=== PATIENT | female | born 1955 | race African-American/Black ===

== ENCOUNTER 2016-10-13 05:04 | Inpatient (IN) | payer MEDICAID ==
[~2016-10-13] VITALS: Ht 172.7 cm; Wt 55.9 kg
[~2016-10-13 05:04] MED LIST: ALBU8HFA IH; CARI350 PO; DARU400T PO; DIPH25 PO; HYDR-3965 PO; QUET100T PO; RITO100C PO; TRUVT PO; VALGDS450 PO
[2016-10-13] MEDS ORDERED: ALBUTEROL SULFATE 5 MG/ML 20 ML NEB SOLN [BULK] NEB ONE ×2 (05:15→13:00)
[2016-10-13] MEDS ORDERED: MethylPREDNISolone SOD SUCC 125 MG/2 ML VIAL IVP ONE (05:15)
[2016-10-13] MEDS ORDERED: IPRATROPIUM BROMIDE 0.5 MG/2.5 ML NEB SOLUTION NEB ONE ×2 (05:15→13:00)
[2016-10-13] MEDS ORDERED: 0.9% SODIUM CHLORIDE 5 ML NEB SOLUTION NEB ONE (05:20)
[2016-10-13] MEDS ORDERED: ACETAMINOPHEN 500 MG TABLET PO ONE (11:15)
[2016-10-13] MEDS ORDERED: ONDANSETRON HCL 4 MG/2 ML VIAL IM ONE (13:00)
[2016-10-13] MEDS ORDERED: MORPHINE SULFATE 4 MG/ML SYRINGE IM ONE (13:00)
[2016-10-13] MEDS ORDERED: MORPHINE SULFATE 4 MG/ML SYRINGE IVP ONE (15:45)
[2016-10-13] MEDS ORDERED: ONDANSETRON HCL 4 MG/2 ML VIAL IVP ONE (15:45)
[2016-10-13 15:52] LABS: HEMATOCRIT 31.4 % (36-46); HEMOGLOBIN 10.4 g/dL (12.0-16.0); MEAN CORPUSCULAR HEMOGLOBIN 32.5 pg (26.0-34.0); MEAN CORPUSCULAR VOLUME 98 fL (80-100); RED BLOOD CELL COUNT(AUTO) 3.19 MIL/uL (4.00-5.20); WHITE BLOOD COUNT (AUTO) 10.2 K/uL (4.5-11.0)
[2016-10-13 15:53] LABS: BASOPHILS # (AUTO) 0.02 K/uL (0.00-0.20); BASOPHILS % (AUTO) 0.2 % (0.0-2.0); EOSINOPHILS % (AUTO) 0 % (1.0-6.0); LYMPHOCYTES # (AUTO) 0.4 K/uL (1.0-4.8); LYMPHOCYTES % (AUTO) 3.7 % (22.0-44.0); MEAN CORPUSCULAR HGB CONC 33.1 G/dL (31.0-37.0); MONOCYTES # (AUTO) 0.1 K/uL (0.1-1.0); MONOCYTES % (AUTO) 0.9 % (2.0-9.0); NEUTROPHILS # (AUTO) 9.7 K/uL (1.8-7.7); NEUTROPHILS % (AUTO) 95.2 % (40.0-70.0); PLATELET COUNT (AUTO) 361 K/uL (150-450)
[2016-10-13 15:56] LABS: CREATININE 1.28 mg/dL (0.60-1.30); POTASSIUM 4.2 mmol/L (3.5-5.1)
[2016-10-13 16:02] LABS: BILIRUBIN,TOTAL 0.3 mg/dL (0.1-1.0); TOTAL PROTEIN, SERUM 6.7 g/dL (6.4-8.2)
[2016-10-13 16:15] VITALS: BP 145/97
[2016-10-13] MEDS ORDERED: ALBUTEROL SULFATE 2.5 MG/0.5 ML NEB SOLUTION NEB PRN (18:15)
[2016-10-13] MEDS ORDERED: DiphenhydrAMINE HCL 25 MG CAPSULE PO PRN (18:15)
[2016-10-13] MEDS ORDERED: IPRATROPIUM BROMIDE 0.5 MG/2.5 ML NEB SOLUTION NEB PRN (18:15)
[2016-10-13] MEDS: CARISOPRODOL 350 MG TABLET PO SCH (18:37)
[2016-10-13] MEDS: HYDROCODONE/ACETAMINOPHEN 5-325 MG TABLET PO PRN (18:41)
[2016-10-13 19:24] VITALS: BP 135/76
[2016-10-13] MEDS: OXYGEN THERAPY IH SCH (19:50)
[2016-10-13] MEDS: IPRATROPIUM BROMIDE 0.5 MG/2.5 ML NEB SOLUTION NEB SCH (20:33)
[2016-10-13] MEDS: ALBUTEROL SULFATE 2.5 MG/0.5 ML NEB SOLUTION NEB SCH (20:33)
[2016-10-13] MEDS: QUEtiapine FUMARATE 25 MG TABLET PO SCH (21:15)
[2016-10-13] MEDS: DiphenhydrAMINE HCL 25 MG CAPSULE PO PRN (21:59)
[2016-10-13 23:18] VITALS: BP 115/56
[2016-10-14] MEDS: HEPARIN SODIUM,PORCINE 5,000 UNITS/ML VIAL SQ SCH ×4 (01:12→23:43)
[2016-10-14] MEDS: MethylPREDNISolone SOD SUCC 40 MG/ML VIAL IVP SCH ×4 (01:12→23:43)
[2016-10-14] MEDS: HYDROCODONE/ACETAMINOPHEN 5-325 MG TABLET PO PRN ×5 (01:19→23:43)
[2016-10-14] MEDS: IPRATROPIUM BROMIDE 0.5 MG/2.5 ML NEB SOLUTION NEB SCH ×4 (02:46→19:43)
[2016-10-14] MEDS: ALBUTEROL SULFATE 2.5 MG/0.5 ML NEB SOLUTION NEB SCH ×4 (02:46→19:43)
[2016-10-14 04:45] VITALS: BP 128/71
[2016-10-14] MEDS: DiphenhydrAMINE HCL 25 MG CAPSULE PO PRN ×3 (05:41→20:08)
[2016-10-14 06:04] LABS: BASOPHILS % (AUTO) 0.1 % (0.0-2.0); EOSINOPHILS % (AUTO) 0 % (1.0-6.0); HEMATOCRIT 31.5 % (36-46); HEMOGLOBIN 10.3 g/dL (12.0-16.0); LYMPHOCYTES # (AUTO) 0.6 K/uL (1.0-4.8); LYMPHOCYTES % (AUTO) 5.4 % (22.0-44.0); MEAN CORPUSCULAR HEMOGLOBIN 32.7 pg (26.0-34.0); MEAN CORPUSCULAR HGB CONC 32.8 G/dL (31.0-37.0); MEAN CORPUSCULAR VOLUME 100 fL (80-100); MONOCYTES # (AUTO) 0.1 K/uL (0.1-1.0); NEUTROPHILS # (AUTO) 10.1 K/uL (1.8-7.7); PLATELET COUNT (AUTO) 339 K/uL (150-450); RED BLOOD CELL COUNT(AUTO) 3.15 MIL/uL (4.00-5.20); RED CELL DISTRIBUTION WIDTH 14.7 % (11.5-14.5); WHITE BLOOD COUNT (AUTO) 10.9 K/uL (4.5-11.0)
[2016-10-14 06:23] LABS: NEUTROPHILS % (AUTO) 93.5 % (40.0-70.0)
[2016-10-14 07:13] LABS: CALCIUM, TOTAL 9.1 mg/dL (8.8-10.5); CREATININE 1.14 mg/dL (0.60-1.30); POTASSIUM 4.8 mmol/L (3.5-5.1)
[2016-10-14 07:37] VITALS: BP 117/85
[2016-10-14] MEDS: QUEtiapine FUMARATE 25 MG TABLET PO SCH ×2 (08:12→20:07)
[2016-10-14] MEDS: CARISOPRODOL 350 MG TABLET PO SCH ×3 (08:13→20:07)
[2016-10-14] MEDS: EMTRICITABINE/TENOFOVIR 200-300 MG TABLET PO SCH (08:13)
[2016-10-14] MEDS: OXYGEN THERAPY IH SCH ×2 (08:14→20:07)
[2016-10-14 11:16] VITALS: BP 103/63
[2016-10-14 16:23] VITALS: BP 118/76
[2016-10-14] MEDS: PROMETHAZINE HCL/CODEINE 6.25-10MG/5ML SYRUP UDCUP PO PRN ×2 (16:24→23:49)
[2016-10-14 19:48] VITALS: BP 119/77
[2016-10-14 23:54] VITALS: BP 120/77
[2016-10-15] MEDS: ALBUTEROL SULFATE 2.5 MG/0.5 ML NEB SOLUTION NEB SCH ×4 (03:07→20:06)
[2016-10-15] MEDS: IPRATROPIUM BROMIDE 0.5 MG/2.5 ML NEB SOLUTION NEB SCH ×4 (03:07→20:06)
[2016-10-15 04:56] VITALS: BP 134/75
[2016-10-15] MEDS: DiphenhydrAMINE HCL 25 MG CAPSULE PO PRN ×3 (06:35→20:41)
[2016-10-15] MEDS: HYDROCODONE/ACETAMINOPHEN 5-325 MG TABLET PO PRN ×3 (06:35→20:42)
[2016-10-15 07:29] VITALS: BP 111/74
[2016-10-15] MEDS: OXYGEN THERAPY IH SCH ×2 (08:08→20:41)
[2016-10-15] MEDS: MethylPREDNISolone SOD SUCC 40 MG/ML VIAL IVP SCH ×3 (08:45→23:56)
[2016-10-15] MEDS: QUEtiapine FUMARATE 25 MG TABLET PO SCH ×2 (08:45→20:41)
[2016-10-15] MEDS: PROMETHAZINE HCL/CODEINE 6.25-10MG/5ML SYRUP UDCUP PO PRN ×3 (08:45→23:56)
[2016-10-15] MEDS: EMTRICITABINE/TENOFOVIR 200-300 MG TABLET PO SCH (08:45)
[2016-10-15] MEDS: CARISOPRODOL 350 MG TABLET PO SCH ×2 (08:46→20:41)
[2016-10-15] MEDS: HEPARIN SODIUM,PORCINE 5,000 UNITS/ML VIAL SQ SCH ×3 (08:46→23:56)
[2016-10-15 11:07] VITALS: BP 111/61
[2016-10-15] MEDS: MAGNESIUM HYDROXIDE SUSPENSION 30 ML UDCUP PO PRN (15:17)
[2016-10-15 15:21] VITALS: BP 135/77
[2016-10-15 20:01] VITALS: BP 145/113
[2016-10-16] VITALS (7 sets, daily range): BP systolic 131–153; BP diastolic 73–94
[2016-10-16] MEDS: ALBUTEROL SULFATE 2.5 MG/0.5 ML NEB SOLUTION NEB SCH ×4 (02:00→19:40)
[2016-10-16] MEDS: IPRATROPIUM BROMIDE 0.5 MG/2.5 ML NEB SOLUTION NEB SCH ×4 (02:00→19:40)
[2016-10-16] MEDS: DiphenhydrAMINE HCL 25 MG CAPSULE PO PRN ×3 (04:49→20:01)
[2016-10-16] MEDS: HYDROCODONE/ACETAMINOPHEN 5-325 MG TABLET PO PRN ×2 (04:50→12:01)
[2016-10-16] MEDS: EMTRICITABINE/TENOFOVIR 200-300 MG TABLET PO SCH (08:17)
[2016-10-16] MEDS: QUEtiapine FUMARATE 25 MG TABLET PO SCH ×2 (08:18→20:01)
[2016-10-16] MEDS: MethylPREDNISolone SOD SUCC 40 MG/ML VIAL IVP SCH (08:21)
[2016-10-16] MEDS: HEPARIN SODIUM,PORCINE 5,000 UNITS/ML VIAL SQ SCH ×3 (08:21→23:44)
[2016-10-16] MEDS: OXYGEN THERAPY IH SCH ×2 (08:22→19:43)
[2016-10-16] MEDS: PROMETHAZINE HCL/CODEINE 6.25-10MG/5ML SYRUP UDCUP PO PRN ×3 (08:22→23:44)
[2016-10-16] MEDS: CARISOPRODOL 350 MG TABLET PO SCH ×2 (08:23→20:01)
[2016-10-16] MEDS: OxyCODONE HCL/ACETAMINOPHEN 5-325 MG TABLET PO PRN ×2 (18:01→23:44)
[2016-10-16] MEDS: PredniSONE 20 MG TABLET PO SCH (20:01)
[2016-10-17] MEDS: IPRATROPIUM BROMIDE 0.5 MG/2.5 ML NEB SOLUTION NEB SCH ×4 (02:26→19:59)
[2016-10-17] MEDS: ALBUTEROL SULFATE 2.5 MG/0.5 ML NEB SOLUTION NEB SCH ×4 (02:26→19:59)
[2016-10-17 04:50] VITALS: BP 128/84
[2016-10-17] MEDS: PROMETHAZINE HCL/CODEINE 6.25-10MG/5ML SYRUP UDCUP PO PRN ×3 (05:25→19:10)
[2016-10-17] MEDS: OxyCODONE HCL/ACETAMINOPHEN 5-325 MG TABLET PO PRN ×3 (05:25→19:10)
[2016-10-17 07:36] VITALS: BP 148/88
[2016-10-17] MEDS: QUEtiapine FUMARATE 25 MG TABLET PO SCH ×2 (08:20→20:43)
[2016-10-17] MEDS: DiphenhydrAMINE HCL 25 MG CAPSULE PO PRN ×2 (08:20→20:45)
[2016-10-17] MEDS: EMTRICITABINE/TENOFOVIR 200-300 MG TABLET PO SCH (08:20)
[2016-10-17] MEDS: PredniSONE 20 MG TABLET PO SCH ×2 (08:20→20:42)
[2016-10-17] MEDS: CARISOPRODOL 350 MG TABLET PO SCH ×2 (08:20→20:43)
[2016-10-17] MEDS: OXYGEN THERAPY IH SCH ×2 (08:21→19:59)
[2016-10-17] MEDS: HEPARIN SODIUM,PORCINE 5,000 UNITS/ML VIAL SQ SCH ×2 (08:21→16:56)
[2016-10-17 11:29] VITALS: BP 134/70
[2016-10-17 15:28] VITALS: BP 141/84
[2016-10-17 18:01] VITALS: BP 138/79
[2016-10-17 20:51] VITALS: BP 154/98
[2016-10-18] VITALS (7 sets, daily range): BP systolic 108–150; BP diastolic 59–87
[2016-10-18] MEDS: OxyCODONE HCL/ACETAMINOPHEN 5-325 MG TABLET PO PRN ×4 (00:20→20:25)
[2016-10-18] MEDS: HEPARIN SODIUM,PORCINE 5,000 UNITS/ML VIAL SQ SCH ×4 (00:20→23:23)
[2016-10-18] MEDS: ALBUTEROL SULFATE 2.5 MG/0.5 ML NEB SOLUTION NEB SCH ×4 (02:34→19:42)
[2016-10-18] MEDS: IPRATROPIUM BROMIDE 0.5 MG/2.5 ML NEB SOLUTION NEB SCH ×4 (02:34→19:41)
[2016-10-18] MEDS: MethylPREDNISolone SOD SUCC 125 MG/2 ML VIAL IVP SCH ×4 (02:44→23:23)
[2016-10-18] MEDS: PROMETHAZINE HCL/CODEINE 6.25-10MG/5ML SYRUP UDCUP PO PRN ×2 (02:44→19:54)
[2016-10-18] MEDS: EMTRICITABINE/TENOFOVIR 200-300 MG TABLET PO SCH (08:43)
[2016-10-18] MEDS: QUEtiapine FUMARATE 25 MG TABLET PO SCH ×2 (08:44→19:51)
[2016-10-18] MEDS: CARISOPRODOL 350 MG TABLET PO SCH ×2 (08:44→19:51)
[2016-10-18] MEDS: OXYGEN THERAPY IH SCH (08:46)
[2016-10-18] MEDS: DiphenhydrAMINE HCL 25 MG CAPSULE PO PRN ×2 (13:55→19:54)
[2016-10-19] MEDS: IPRATROPIUM BROMIDE 0.5 MG/2.5 ML NEB SOLUTION NEB SCH ×4 (01:28→20:16)
[2016-10-19] MEDS: ALBUTEROL SULFATE 2.5 MG/0.5 ML NEB SOLUTION NEB SCH ×4 (01:28→20:16)
[2016-10-19] MEDS: OxyCODONE HCL/ACETAMINOPHEN 5-325 MG TABLET PO PRN ×3 (02:01→23:06)
[2016-10-19] MEDS: DiphenhydrAMINE HCL 25 MG CAPSULE PO PRN ×4 (02:06→23:06)
[2016-10-19] MEDS: PROMETHAZINE HCL/CODEINE 6.25-10MG/5ML SYRUP UDCUP PO PRN ×3 (02:06→23:04)
[2016-10-19] MEDS ORDERED: IOVERSOL 350 MG/ML 100 ML VIAL ONE (03:15)
[2016-10-19] MEDS ORDERED: SODIUM CHLORIDE 0.9% 100 ML ONE (03:15)
[2016-10-19 04:25] VITALS: BP 153/87
[2016-10-19 07:13] VITALS: BP 128/88
[2016-10-19] MEDS: OXYGEN THERAPY IH SCH ×3 (08:00→19:54)
[2016-10-19] MEDS: EMTRICITABINE/TENOFOVIR 200-300 MG TABLET PO SCH (08:44)
[2016-10-19] MEDS: CARISOPRODOL 350 MG TABLET PO SCH ×2 (08:45→19:55)
[2016-10-19] MEDS: MethylPREDNISolone SOD SUCC 125 MG/2 ML VIAL IVP SCH ×2 (08:45→16:08)
[2016-10-19] MEDS: HEPARIN SODIUM,PORCINE 5,000 UNITS/ML VIAL SQ SCH ×3 (08:45→23:07)
[2016-10-19] MEDS: QUEtiapine FUMARATE 25 MG TABLET PO SCH ×2 (08:45→19:54)
[2016-10-19 11:20] VITALS: BP 139/81
[2016-10-19 15:20] VITALS: BP 124/80
[2016-10-19 19:21] VITALS: BP 134/70
[2016-10-19] MEDS: PredniSONE 20 MG TABLET PO SCH (19:55)
[2016-10-20 00:31] VITALS: BP 130/72
[2016-10-20] MEDS: ALBUTEROL SULFATE 2.5 MG/0.5 ML NEB SOLUTION NEB SCH ×4 (01:57→19:46)
[2016-10-20] MEDS: IPRATROPIUM BROMIDE 0.5 MG/2.5 ML NEB SOLUTION NEB SCH ×4 (01:57→19:46)
[2016-10-20 04:47] VITALS: BP 137/73
[2016-10-20] MEDS: OxyCODONE HCL/ACETAMINOPHEN 5-325 MG TABLET PO PRN ×3 (05:01→21:10)
[2016-10-20] MEDS: DiphenhydrAMINE HCL 25 MG CAPSULE PO PRN ×3 (05:02→21:10)
[2016-10-20] MEDS: MAGNESIUM HYDROXIDE SUSPENSION 30 ML UDCUP PO PRN (06:45)
[2016-10-20] MEDS: OXYGEN THERAPY IH SCH (07:38)
[2016-10-20 08:18] VITALS: BP 149/82
[2016-10-20] MEDS: PredniSONE 20 MG TABLET PO SCH ×2 (08:39→19:57)
[2016-10-20] MEDS: QUEtiapine FUMARATE 25 MG TABLET PO SCH ×2 (08:39→19:57)
[2016-10-20] MEDS: EMTRICITABINE/TENOFOVIR 200-300 MG TABLET PO SCH (08:39)
[2016-10-20] MEDS: HEPARIN SODIUM,PORCINE 5,000 UNITS/ML VIAL SQ SCH ×3 (08:39→23:23)
[2016-10-20] MEDS: CARISOPRODOL 350 MG TABLET PO SCH ×2 (08:39→19:57)
[2016-10-20 11:34] VITALS: BP 113/65
[2016-10-20] MEDS: PROMETHAZINE HCL/CODEINE 6.25-10MG/5ML SYRUP UDCUP PO PRN ×2 (15:02→21:10)
[2016-10-20 19:20] VITALS: BP 133/78
[2016-10-20 23:04] VITALS: BP 125/68
[2016-10-21] VITALS (7 sets, daily range): BP systolic 112–154; BP diastolic 60–93
[2016-10-21] MEDS: OxyCODONE HCL/ACETAMINOPHEN 5-325 MG TABLET PO PRN ×4 (02:25→22:52)
[2016-10-21] MEDS: DiphenhydrAMINE HCL 25 MG CAPSULE PO PRN ×2 (02:26→22:51)
[2016-10-21] MEDS: PROMETHAZINE HCL/CODEINE 6.25-10MG/5ML SYRUP UDCUP PO PRN ×3 (02:26→19:35)
[2016-10-21] MEDS: ALBUTEROL SULFATE 2.5 MG/0.5 ML NEB SOLUTION NEB SCH ×4 (02:38→20:13)
[2016-10-21] MEDS: IPRATROPIUM BROMIDE 0.5 MG/2.5 ML NEB SOLUTION NEB SCH ×4 (02:38→20:12)
[2016-10-21] MEDS: OXYGEN THERAPY IH SCH ×3 (08:00→20:25)
[2016-10-21] MEDS: CARISOPRODOL 350 MG TABLET PO SCH ×2 (08:13→19:31)
[2016-10-21] MEDS: EMTRICITABINE/TENOFOVIR 200-300 MG TABLET PO SCH (08:13)
[2016-10-21] MEDS: PredniSONE 20 MG TABLET PO SCH ×2 (08:13→19:32)
[2016-10-21] MEDS: QUEtiapine FUMARATE 25 MG TABLET PO SCH ×2 (08:14→19:31)
[2016-10-21] MEDS: HEPARIN SODIUM,PORCINE 5,000 UNITS/ML VIAL SQ SCH ×2 (08:15→14:54)
[2016-10-21] MEDS ORDERED: PRED20 PO (17:38)
[2016-10-22] MEDS: HEPARIN SODIUM,PORCINE 5,000 UNITS/ML VIAL SQ SCH ×2 (00:40→08:10)
[2016-10-22] MEDS: ALBUTEROL SULFATE 2.5 MG/0.5 ML NEB SOLUTION NEB SCH ×2 (02:30→09:30)
[2016-10-22] MEDS: IPRATROPIUM BROMIDE 0.5 MG/2.5 ML NEB SOLUTION NEB SCH ×2 (02:30→09:30)
[2016-10-22] MEDS: DiphenhydrAMINE HCL 25 MG CAPSULE PO PRN (04:35)
[2016-10-22] MEDS: OxyCODONE HCL/ACETAMINOPHEN 5-325 MG TABLET PO PRN ×2 (04:36→08:10)
[2016-10-22 05:37] VITALS: BP 121/79
[2016-10-22 07:10] VITALS: BP 126/74
[2016-10-22] MEDS: EMTRICITABINE/TENOFOVIR 200-300 MG TABLET PO SCH (08:10)
[2016-10-22] MEDS: QUEtiapine FUMARATE 25 MG TABLET PO SCH (08:11)
[2016-10-22] MEDS: PredniSONE 20 MG TABLET PO SCH (08:11)
[2016-10-22] MEDS: CARISOPRODOL 350 MG TABLET PO SCH (08:12)
[2016-10-22] MEDS: PROMETHAZINE HCL/CODEINE 6.25-10MG/5ML SYRUP UDCUP PO PRN (08:13)
[2016-10-22 11:11] VITALS: BP 140/89
== END 2016-10-22 13:07 | disposition home or self-care (01) | DRG 140 ==
LOC: EMS 05:06 → 5S 12:59 → 6N 10-17 18:05
PROVIDERS: ADMIT Family Medicine; ATTEND Family Medicine
PROC: 5A09357 Assistance with Respiratory Ventilation, Less than 24 Consecutive Hours, Continuous Positive Airway Pressure (ICD-10-PCS; principal; 2016-10-13)
DX: J44.1 Chronic obstructive pulmonary disease with (acute) exacerbation (principal); J96.21 Acute and chronic respiratory failure with hypoxia; E44.1 Mild protein-calorie malnutrition; I12.9 Hypertensive chronic kidney disease with stage 1 through stage 4 chronic kidney disease, or unspecified chronic kidney disease; M19.90 Unspecified osteoarthritis, unspecified site; F25.9 Schizoaffective disorder, unspecified; G89.4 Chronic pain syndrome; N18.9 Chronic kidney disease, unspecified; K21.9 Gastro-esophageal reflux disease without esophagitis; E78.00 Pure hypercholesterolemia, unspecified; J42 Unspecified chronic bronchitis; B19.20 Unspecified viral hepatitis C without hepatic coma; F17.210 Nicotine dependence, cigarettes, uncomplicated; Z20.6 Contact with and (suspected) exposure to human immunodeficiency virus [HIV]; Z98.890 Other specified postprocedural states; Z79.899 Other long term (current) drug therapy; Z79.891 Long term (current) use of opiate analgesic; Z87.891 Personal history of nicotine dependence; Z21 Asymptomatic human immunodeficiency virus [HIV] infection status
CPT/HCPCS: 71260; 87081; 93005; 94060; 94640; 94644; 94660; 96372; 96374; 96375; 97161; 99285; J1644; J2270; J2405; J2920; J2930; J7050

== ENCOUNTER 2016-12-02 14:12 | Inpatient (IN) | payer MEDICAID, OTHER ==
[~2016-12-02] VITALS: Ht 172.7 cm; Wt 69.3 kg
[~2016-12-02 14:12] MED LIST changes: -DARU400T PO; +PRED20 PO; -RITO100C PO
[2016-12-02] MEDS ORDERED: MethylPREDNISolone SOD SUCC 125 MG/2 ML VIAL ONE (14:18)
[2016-12-02] MEDS ORDERED: IPRATROPIUM BROMIDE 0.5 MG/2.5 ML NEB SOLUTION NEB ONE ×3 (14:20→15:30)
[2016-12-02 14:30] LABS: ABG BASE EXCESS -0.9 mmol/L (-2.0-3.0); ABG HCO3 23.8 mmol/L (22.0-26.0); ABG PCO2 42 mmHg (35-45); ABG PH 7.379 (7.35-7.450); TEMPERATURE, FAHRENHEIT, BG 98.6 FAHREN (96.0-98.6)
[2016-12-02] MEDS ORDERED: MethylPREDNISolone SOD SUCC 125 MG/2 ML VIAL IVP ONE (14:30)
[2016-12-02] MEDS ORDERED: ALBUTEROL SULFATE 5 MG/ML 20 ML NEB SOLN [BULK] NEB ONE ×2 (14:30→15:30)
[2016-12-02] MEDS ORDERED: DEXAMETHASONE SOD PHOS 4 MG/ML 5 ML VIAL IM ONE (14:30)
[2016-12-02] MEDS ORDERED: SODIUM CHLORIDE 0.9% 1,000 ML IV ONE (14:30)
[2016-12-02 14:32] LABS: ALLEN TEST, BLOOD GAS Positive; IPAP, BG 16 cm H2O
[2016-12-02 14:50] LABS: BASOPHILS % (AUTO) 0.2 % (0.0-2.0); EOSINOPHILS % (AUTO) 1.9 % (1.0-6.0); HEMOGLOBIN 14.2 g/dL (12.0-16.0); LYMPHOCYTES % (AUTO) 33.9 % (22.0-44.0); MEAN CORPUSCULAR HEMOGLOBIN 31.5 pg (26.0-34.0); MEAN CORPUSCULAR HGB CONC 32.4 G/dL (31.0-37.0); MEAN CORPUSCULAR VOLUME 97 fL (80-100); MONOCYTES # (AUTO) 0.8 K/uL (0.1-1.0); NEUTROPHILS # (AUTO) 6.7 K/uL (1.8-7.7); PLATELET COUNT (AUTO) 169 K/uL (150-450); RED BLOOD CELL COUNT(AUTO) 4.52 MIL/uL (4.00-5.20); RED CELL DISTRIBUTION WIDTH 15.2 % (11.5-14.5); WHITE BLOOD COUNT (AUTO) 11.8 K/uL (4.5-11.0)
[2016-12-02 15:09] LABS: B-TYPE NATRIURETIC PEPTIDE 12 pg/mL (0-100)
[2016-12-02 15:14] LABS: ANION GAP 9 mmol/L (8-16); CALCIUM, TOTAL 9.2 mg/dL (8.8-10.5); CARBON DIOXIDE 30 mmol/L (22-29); CHLORIDE 107 mmol/L (98-107); CREATININE 1.07 mg/dL (0.60-1.30); GLOMERULAR FILTR. RATE CALC > 60 mL/min (>60); POTASSIUM 4.4 mmol/L (3.5-5.1); SODIUM SERUM 146 mmol/L (136-145); UREA NITROGEN, BLOOD 13 mg/dL (7-18)
[2016-12-02 15:39] LABS: ALANINE AMINOTRANSFERASE 19 U/L (12-78); ASPARTATE AMINOTRANSFERASE 21 U/L (15-37); BILIRUBIN,TOTAL 0.3 mg/dL (0.1-1.0); CREATINE KINASE MB 2.9 ng/mL (0-5); CREATINE KINASE, TOTAL 193 U/L (26-192); TOTAL PROTEIN, SERUM 8.1 g/dL (6.4-8.2)
[2016-12-02] MEDS ORDERED: MORPHINE SULFATE 4 MG/ML SYRINGE IVP ONE ×2 (16:15→17:00)
[2016-12-02] MEDS ORDERED: DiphenhydrAMINE HCL 50 MG/ML VIAL IVP ONE (16:30)
[2016-12-02] MEDS ORDERED: ACETAMINOPHEN 325 MG TABLET PO PRN ×2 (17:00→20:30)
[2016-12-02] MEDS ORDERED: ASPIRIN 81 MG CHEWABLE TABLET PO ONE (17:00)
[2016-12-02] MEDS ORDERED: HYDROCODONE/ACETAMINOPHEN 5-325 MG TABLET PO PRN (17:00)
[2016-12-02] MEDS ORDERED: MORPHINE SULFATE 4 MG/ML SYRINGE IVP PRN (17:00)
[2016-12-02] MEDS ORDERED: ONDANSETRON HCL 4 MG/2 ML VIAL IVP PRN (17:00)
[2016-12-02] MEDS ORDERED: IPRATROPIUM BROMIDE 0.5 MG/2.5 ML NEB SOLUTION NEB SCH (19:00)
[2016-12-02] MEDS ORDERED: ALBUTEROL SULFATE 2.5 MG/0.5 ML NEB SOLUTION NEB SCH (19:00)
[2016-12-02] MEDS ORDERED: 0.9% SODIUM CHLORIDE 5 ML NEB SOLUTION NEB ONE (20:02)
[2016-12-02] MEDS ORDERED: INSULIN ASPART 100 UNITS/ML SQ PRN (20:30)
[2016-12-02] MEDS ORDERED: DEXTROSE 50%-WATER 25 GM/50 ML SYRINGE IVP PRN (20:30)
[2016-12-02] MEDS ORDERED: MAGNESIUM HYDROXIDE SUSPENSION 30 ML UDCUP PO PRN (20:30)
[2016-12-02 21:04] VITALS: BP 134/77
[2016-12-02] MEDS: DOCUSATE SODIUM 100 MG CAPSULE PO SCH (21:23)
[2016-12-02] MEDS: PANTOPRAZOLE SODIUM 40 MG DR TABLET PO SCH (21:23)
[2016-12-02] MEDS: MORPHINE SULFATE 2 MG/ML SYRINGE IVP PRN (21:24)
[2016-12-02] MEDS: SIMVASTATIN 20 MG TABLET PO SCH (22:00)
[2016-12-02] MEDS: IPRATROPIUM BROMIDE 0.5 MG/2.5 ML NEB SOLUTION NEB SCH (23:25)
[2016-12-02] MEDS: ALBUTEROL SULFATE 2.5 MG/0.5 ML NEB SOLUTION NEB SCH (23:26)
[2016-12-02] MEDS: HEPARIN SODIUM,PORCINE 5,000 UNITS/ML VIAL SQ SCH (23:55)
[2016-12-02] MEDS: DiphenhydrAMINE HCL 25 MG CAPSULE PO PRN (23:55)
[2016-12-02] MEDS: MethylPREDNISolone SOD SUCC 125 MG/2 ML VIAL IVP SCH (23:55)
[2016-12-03] VITALS (7 sets, daily range): BP systolic 127–148; BP diastolic 78–93
[2016-12-03] MEDS: ALBUTEROL SULFATE 2.5 MG/0.5 ML NEB SOLUTION NEB SCH ×6 (03:15→23:23)
[2016-12-03] MEDS: IPRATROPIUM BROMIDE 0.5 MG/2.5 ML NEB SOLUTION NEB SCH ×6 (03:15→23:23)
[2016-12-03] MEDS: MORPHINE SULFATE 2 MG/ML SYRINGE IVP PRN ×3 (03:58→17:03)
[2016-12-03] MEDS: MethylPREDNISolone SOD SUCC 125 MG/2 ML VIAL IVP SCH ×2 (05:35→12:40)
[2016-12-03 07:09] LABS: BASOPHILS % (AUTO) 0.1 % (0.0-2.0); EOSINOPHILS % (AUTO) 0 % (1.0-6.0); HEMATOCRIT 36.8 % (36-46); HEMOGLOBIN 11.9 g/dL (12.0-16.0); LYMPHOCYTES # (AUTO) 0.9 K/uL (1.0-4.8); LYMPHOCYTES % (AUTO) 6.6 % (22.0-44.0); MEAN CORPUSCULAR HEMOGLOBIN 31.3 pg (26.0-34.0); MEAN CORPUSCULAR HGB CONC 32.2 G/dL (31.0-37.0); MEAN CORPUSCULAR VOLUME 97 fL (80-100); MONOCYTES # (AUTO) 0.2 K/uL (0.1-1.0); MONOCYTES % (AUTO) 1.8 % (2.0-9.0); NEUTROPHILS # (AUTO) 12.1 K/uL (1.8-7.7); PLATELET COUNT (AUTO) 149 K/uL (150-450); RED BLOOD CELL COUNT(AUTO) 3.79 MIL/uL (4.00-5.20); RED CELL DISTRIBUTION WIDTH 15.2 % (11.5-14.5); WHITE BLOOD COUNT (AUTO) 13.2 K/uL (4.5-11.0)
[2016-12-03 07:15] LABS: NEUTROPHILS % (AUTO) 91.5 % (40.0-70.0); RBC MORPHOLOGY COMMENT NORMAL RBC MORPH
[2016-12-03 07:42] LABS: ANION GAP 13 mmol/L (8-16); CALCIUM, TOTAL 8.9 mg/dL (8.8-10.5); CARBON DIOXIDE 24 mmol/L (22-29); CHLORIDE 104 mmol/L (98-107); CREATININE 1.03 mg/dL (0.60-1.30); GLOMERULAR FILTR. RATE CALC > 60 mL/min (>60); POTASSIUM 4.5 mmol/L (3.5-5.1); SODIUM SERUM 141 mmol/L (136-145); UREA NITROGEN, BLOOD 15 mg/dL (7-18)
[2016-12-03 08:07] LABS: GLUCOSE COMMENT 1 Received Meds; GLUCOSE,POINT OF CARE 179 MG/DL (70-110)
[2016-12-03] MEDS: HEPARIN SODIUM,PORCINE 5,000 UNITS/ML VIAL SQ SCH ×3 (09:50→23:54)
[2016-12-03] MEDS: ASPIRIN 81 MG CHEWABLE TABLET PO SCH (09:50)
[2016-12-03] MEDS: DOCUSATE SODIUM 100 MG CAPSULE PO SCH ×2 (09:50→19:42)
[2016-12-03] MEDS: PANTOPRAZOLE SODIUM 40 MG DR TABLET PO SCH (09:50)
[2016-12-03] MEDS: DiphenhydrAMINE HCL 25 MG CAPSULE PO PRN ×2 (09:50→19:43)
[2016-12-03] MEDS: MULTIVITAMINS WITH MINERALS, THERAPEUTIC TABLET PO SCH (10:26)
[2016-12-03] MEDS: OxyCODONE HCL/ACETAMINOPHEN 5-325 MG TABLET PO PRN ×3 (15:24→23:54)
[2016-12-03] MEDS: SODIUM CHLORIDE 0.9% 1,000 ML IV SCH (17:01)
[2016-12-03] MEDS: AZITHROMYCIN 500 MG/NS 250 ML IV SCH (17:02)
[2016-12-03 18:57] LABS: GLUCOSE,POINT OF CARE 125 MG/DL (70-110)
[2016-12-03] MEDS: SIMVASTATIN 20 MG TABLET PO SCH (19:43)
[2016-12-04] MEDS: MORPHINE SULFATE 2 MG/ML SYRINGE IVP PRN ×4 (02:13→21:01)
[2016-12-04] MEDS: MethylPREDNISolone SOD SUCC 125 MG/2 ML VIAL IVP SCH ×5 (02:17→18:16)
[2016-12-04] MEDS: CefTRIAXone 1 GM/DEXTROSE 50 ML IV SCH (02:26)
[2016-12-04] MEDS: SODIUM CHLORIDE 0.9% 1,000 ML IV SCH ×3 (02:28→21:45)
[2016-12-04] MEDS: IPRATROPIUM BROMIDE 0.5 MG/2.5 ML NEB SOLUTION NEB SCH ×6 (02:41→23:09)
[2016-12-04] MEDS: ALBUTEROL SULFATE 2.5 MG/0.5 ML NEB SOLUTION NEB SCH ×6 (02:41→23:09)
[2016-12-04] MEDS: AZITHROMYCIN 500 MG/NS 250 ML IV SCH (03:07)
[2016-12-04 06:16] VITALS: BP 131/69
[2016-12-04 07:57] VITALS: BP 142/85
[2016-12-04] MEDS: PANTOPRAZOLE SODIUM 40 MG DR TABLET PO SCH (10:25)
[2016-12-04] MEDS: ASPIRIN 81 MG CHEWABLE TABLET PO SCH (10:26)
[2016-12-04] MEDS: MULTIVITAMINS WITH MINERALS, THERAPEUTIC TABLET PO SCH (10:26)
[2016-12-04] MEDS: DOCUSATE SODIUM 100 MG CAPSULE PO SCH ×2 (10:26→21:01)
[2016-12-04] MEDS: HEPARIN SODIUM,PORCINE 5,000 UNITS/ML VIAL SQ SCH ×2 (10:26→16:00)
[2016-12-04 11:20] VITALS: BP 134/81
[2016-12-04 14:20] VITALS: BP 148/70
[2016-12-04 16:02] VITALS: BP 138/78
[2016-12-04] MEDS: CARISOPRODOL 350 MG TABLET PO SCH (18:16)
[2016-12-04 19:37] VITALS: BP 149/85
[2016-12-04] MEDS: SIMVASTATIN 20 MG TABLET PO SCH (21:01)
[2016-12-05 00:07] VITALS: BP 149/80
[2016-12-05] MEDS: MethylPREDNISolone SOD SUCC 125 MG/2 ML VIAL IVP SCH ×2 (00:12→05:44)
[2016-12-05] MEDS ORDERED: PredniSONE 20 MG TABLET PO SCH ×2 (01:45→08:00)
[2016-12-05] MEDS ORDERED: HYDROCODONE/ACETAMINOPHEN 5-325 MG TABLET PO PRN (01:45)
[2016-12-05] MEDS: QUEtiapine FUMARATE 100 MG TABLET PO SCH ×2 (01:45→08:18)
[2016-12-05] MEDS ORDERED: ALBUTEROL SULFATE HFA 90 MCG/PUFF 8 GM INHALER IH PRN (01:45)
[2016-12-05] MEDS ORDERED: DiphenhydrAMINE HCL 50 MG CAPSULE PO PRN (02:00)
[2016-12-05] MEDS: IPRATROPIUM BROMIDE 0.5 MG/2.5 ML NEB SOLUTION NEB SCH ×2 (03:00→07:00)
[2016-12-05] MEDS: ALBUTEROL SULFATE 2.5 MG/0.5 ML NEB SOLUTION NEB SCH ×2 (03:00→07:00)
[2016-12-05] MEDS: CefTRIAXone 1 GM/DEXTROSE 50 ML IV SCH (03:19)
[2016-12-05] MEDS: MORPHINE SULFATE 2 MG/ML SYRINGE IVP PRN ×2 (03:36→09:37)
[2016-12-05 04:45] VITALS: BP 142/86
[2016-12-05] MEDS: SODIUM CHLORIDE 0.9% 1,000 ML IV SCH (07:45)
[2016-12-05] MEDS: HEPARIN SODIUM,PORCINE 5,000 UNITS/ML VIAL SQ SCH ×2 (08:00)
[2016-12-05 08:10] VITALS: BP 144/103
[2016-12-05] MEDS: MULTIVITAMINS WITH MINERALS, THERAPEUTIC TABLET PO SCH (08:18)
[2016-12-05] MEDS: CARISOPRODOL 350 MG TABLET PO SCH (08:18)
[2016-12-05] MEDS: DOCUSATE SODIUM 100 MG CAPSULE PO SCH (08:18)
[2016-12-05] MEDS: ASPIRIN 81 MG CHEWABLE TABLET PO SCH (08:18)
[2016-12-05] MEDS: PANTOPRAZOLE SODIUM 40 MG DR TABLET PO SCH (08:18)
[2016-12-05] MEDS ORDERED: CARISOPRODOL 350 MG TABLET PO SCH (09:00)
[2016-12-05] MEDS ORDERED: EMTRICITABINE/TENOFOVIR 200-300 MG TABLET PO SCH ×2 (09:00)
[2016-12-05] MEDS ORDERED: AZIT250T6 PO (10:22)
[2016-12-05 11:00] VITALS: BP 146/96
[2016-12-06 17:37] LABS: GLUCOSE,POINT OF CARE 149 MG/DL (70-110)
[2016-12-07 05:32] LABS: GLUCOSE COMMENT 1 Received Meds; GLUCOSE,POINT OF CARE 117 MG/DL (70-110)
[2016-12-07 15:02] LABS: GLUCOSE,POINT OF CARE 112 MG/DL (70-110)
== END 2016-12-05 11:05 | disposition home or self-care (01) | DRG 140 ==
LOC: EMS 14:15 → 5S 18:14
PROVIDERS: ADMIT Internal Medicine; ATTEND Internal Medicine
DX: J44.1 Chronic obstructive pulmonary disease with (acute) exacerbation (principal); B20 Human immunodeficiency virus [HIV] disease; E87.0 Hyperosmolality and hypernatremia; R64 Cachexia; J96.11 Chronic respiratory failure with hypoxia; J84.10 Pulmonary fibrosis, unspecified; I10 Essential (primary) hypertension; E78.00 Pure hypercholesterolemia, unspecified; F17.210 Nicotine dependence, cigarettes, uncomplicated; R07.9 Chest pain, unspecified; F20.9 Schizophrenia, unspecified; K21.9 Gastro-esophageal reflux disease without esophagitis; F19.10 Other psychoactive substance abuse, uncomplicated; B19.20 Unspecified viral hepatitis C without hepatic coma; M19.90 Unspecified osteoarthritis, unspecified site; Z79.899 Other long term (current) drug therapy; Z79.1 Long term (current) use of non-steroidal anti-inflammatories (NSAID); Z79.51 Long term (current) use of inhaled steroids; Z98.890 Other specified postprocedural states; Z68.23 Body mass index [BMI] 23.0-23.9, adult; Z91.19 Patient's noncompliance with other medical treatment and regimen
CPT/HCPCS: 80307; 82805; 82962; 93005; 94640; 94644; 94645; 94660; 96361; 96372; 96374; 96375; 99291; J0456; J0696; J1100; J1200; J1644; J2270; J2930; J7030

== ENCOUNTER 2017-01-08 22:44 | Inpatient (IN) | payer OTHER ==
[~2017-01-08] VITALS: Ht 172.7 cm; Wt 54.7 kg
[~2017-01-08 22:44] MED LIST changes: +AZIT250T6 PO
[2017-01-08] MEDS ORDERED: IPRA4AER IH (22:56)
[2017-01-08] MEDS ORDERED: 0.9% SODIUM CHLORIDE 5 ML NEB SOLUTION NEB ONE (22:57)
[2017-01-08] MEDS ORDERED: IPRATROPIUM BROMIDE 0.5 MG/2.5 ML NEB SOLUTION NEB ONE (23:00)
[2017-01-08] MEDS ORDERED: ALBUTEROL SULFATE 5 MG/ML 20 ML NEB SOLN [BULK] NEB ONE (23:00)
[2017-01-08 23:30] LABS: BASOPHILS % (AUTO) 0.3 % (0.0-2.0); EOSINOPHILS % (AUTO) 1.6 % (1.0-6.0); HEMATOCRIT 35.5 % (36-46); HEMOGLOBIN 11.3 g/dL (12.0-16.0); LYMPHOCYTES # (AUTO) 1.7 K/uL (1.0-4.8); MEAN CORPUSCULAR HEMOGLOBIN 30.7 pg (26.0-34.0); MEAN CORPUSCULAR HGB CONC 31.9 G/dL (31.0-37.0); MEAN CORPUSCULAR VOLUME 96 fL (80-100); MONOCYTES # (AUTO) 0.6 K/uL (0.1-1.0); MONOCYTES % (AUTO) 4.6 % (2.0-9.0); NEUTROPHILS # (AUTO) 11.4 K/uL (1.8-7.7); NEUTROPHILS % (AUTO) 81.5 % (40.0-70.0); PLATELET COUNT (AUTO) 211 K/uL (150-450); RED BLOOD CELL COUNT(AUTO) 3.69 MIL/uL (4.00-5.20); RED CELL DISTRIBUTION WIDTH 14.7 % (11.5-14.5)
[2017-01-08] MEDS ORDERED: ONDANSETRON HCL 4 MG/2 ML VIAL IVP PRN (23:30)
[2017-01-08] MEDS ORDERED: 0.9% SODIUM CHLORIDE 10 ML SYRINGE IVP PRN (23:30)
[2017-01-08] MEDS ORDERED: ACETAMINOPHEN 325 MG TABLET PO PRN (23:30)
[2017-01-08 23:49] LABS: LACTIC ACID 1.1 mmol/L (0.4-2.0)
[2017-01-08 23:57] LABS: PROTHROMBIN TIME 10.9 SEC (9.4-11.6)
[2017-01-09] VITALS (7 sets, daily range): BP systolic 112–142; BP diastolic 58–85
[2017-01-09 00:01] LABS: ANION GAP 6 mmol/L (8-16); CARBON DIOXIDE 26 mmol/L (22-29); CHLORIDE 106 mmol/L (98-107); CREATININE 0.83 mg/dL (0.60-1.30); GLOMERULAR FILTR. RATE CALC > 60 mL/min (>60); POTASSIUM 3.9 mmol/L (3.5-5.1); SODIUM SERUM 138 mmol/L (136-145); UREA NITROGEN, BLOOD 10 mg/dL (7-18)
[2017-01-09 00:07] LABS: ALANINE AMINOTRANSFERASE 11 U/L (12-78); ALBUMIN 2.7 g/dL (3.4-5.0); ASPARTATE AMINOTRANSFERASE 15 U/L (15-37); BILIRUBIN,TOTAL 0.4 mg/dL (0.1-1.0); CREATINE KINASE, TOTAL 62 U/L (26-192); TOTAL PROTEIN, SERUM 6.6 g/dL (6.4-8.2)
[2017-01-09] MEDS ORDERED: MAGNESIUM HYDROXIDE SUSPENSION 30 ML UDCUP PO PRN (02:15)
[2017-01-09] MEDS ORDERED: IPRATROPIUM BROMIDE 0.5 MG/2.5 ML NEB SOLUTION NEB PRN (02:15)
[2017-01-09] MEDS ORDERED: 0.9% SODIUM CHLORIDE 10 ML SYRINGE IVP PRN (02:15)
[2017-01-09] MEDS ORDERED: ONDANSETRON HCL 4 MG/2 ML VIAL IVP PRN (02:15)
[2017-01-09] MEDS ORDERED: ACETAMINOPHEN 325 MG TABLET PO PRN (02:15)
[2017-01-09] MEDS ORDERED: OxyCODONE HCL/ACETAMINOPHEN 5-325 MG TABLET PO PRN (02:15)
[2017-01-09] MEDS ORDERED: ALBUTEROL SULFATE 2.5 MG/0.5 ML NEB SOLUTION NEB PRN (02:15)
[2017-01-09] MEDS ORDERED: SODIUM CHLORIDE 0.9% 250 ML IV ONE (02:37)
[2017-01-09] MEDS: MethylPREDNISolone SOD SUCC 125 MG/2 ML VIAL IVP SCH ×4 (02:40→23:30)
[2017-01-09] MEDS: OxyCODONE HCL/ACETAMINOPHEN 5-325 MG TABLET PO PRN ×4 (02:41→20:58)
[2017-01-09] MEDS: CefTRIAXone 1 GM/DEXTROSE 50 ML IV SCH (02:51)
[2017-01-09] MEDS: IPRATROPIUM BROMIDE 0.5 MG/2.5 ML NEB SOLUTION NEB SCH ×3 (07:30→22:24)
[2017-01-09] MEDS: ALBUTEROL SULFATE 2.5 MG/0.5 ML NEB SOLUTION NEB SCH ×3 (07:30→22:24)
[2017-01-09] MEDS: PANTOPRAZOLE SODIUM 40 MG/VIAL IVP SCH (08:04)
[2017-01-09] MEDS: DOCUSATE SODIUM 100 MG CAPSULE PO SCH ×2 (08:05→20:58)
[2017-01-09] MEDS ORDERED: CARISOPRODOL 350 MG TABLET PO SCH (09:00)
[2017-01-09] MEDS ORDERED: QUEtiapine FUMARATE 100 MG TABLET PO SCH (09:00)
[2017-01-09] MEDS: GuaiFENesin/CODEINE [SUGAR FREE] 200-20MG/10 ML SYRUP UDCUP PO PRN ×2 (11:08→20:57)
[2017-01-09] MEDS: HEPARIN SODIUM,PORCINE 5,000 UNITS/ML VIAL SQ SCH (20:58)
[2017-01-09] MEDS: CARISOPRODOL 350 MG TABLET PO SCH (22:48)
[2017-01-09] MEDS: QUEtiapine FUMARATE 25 MG TABLET PO SCH (22:48)
[2017-01-10 00:12] VITALS: BP 131/84
[2017-01-10] MEDS ORDERED: 0.9% SODIUM CHLORIDE 5 ML NEB SOLUTION NEB ONE (01:46)
[2017-01-10] MEDS: ALBUTEROL SULFATE 2.5 MG/0.5 ML NEB SOLUTION NEB SCH ×3 (01:50→14:00)
[2017-01-10] MEDS: IPRATROPIUM BROMIDE 0.5 MG/2.5 ML NEB SOLUTION NEB SCH ×3 (01:50→14:00)
[2017-01-10] MEDS ORDERED: SODIUM CHLORIDE 0.9% 250 ML IV ONE (03:27)
[2017-01-10] MEDS: CefTRIAXone 1 GM/DEXTROSE 50 ML IV SCH (03:34)
[2017-01-10 05:10] VITALS: BP 106/61
[2017-01-10] MEDS: OxyCODONE HCL/ACETAMINOPHEN 5-325 MG TABLET PO PRN ×2 (05:27→09:49)
[2017-01-10 06:48] LABS: HEMATOCRIT 33.8 % (36-46); HEMOGLOBIN 11.1 g/dL (12.0-16.0); MEAN CORPUSCULAR HEMOGLOBIN 32.1 pg (26.0-34.0); MEAN CORPUSCULAR HGB CONC 32.9 G/dL (31.0-37.0); MEAN CORPUSCULAR VOLUME 98 fL (80-100); PLATELET COUNT (AUTO) 236 K/uL (150-450); RED BLOOD CELL COUNT(AUTO) 3.46 MIL/uL (4.00-5.20); WHITE BLOOD COUNT (AUTO) 10.2 K/uL (4.5-11.0)
[2017-01-10 06:55] LABS: ANION GAP 9 mmol/L (8-16); CALCIUM, TOTAL 8.7 mg/dL (8.8-10.5); CARBON DIOXIDE 27 mmol/L (22-29); CHLORIDE 103 mmol/L (98-107); CREATININE 0.98 mg/dL (0.60-1.30); GLOMERULAR FILTR. RATE CALC > 60 mL/min (>60); POTASSIUM 3.6 mmol/L (3.5-5.1); SODIUM SERUM 139 mmol/L (136-145); UREA NITROGEN, BLOOD 15 mg/dL (7-18)
[2017-01-10 07:54] VITALS: BP 113/93
[2017-01-10] MEDS: MethylPREDNISolone SOD SUCC 125 MG/2 ML VIAL IVP SCH (08:15)
[2017-01-10 08:16] LABS: BAND NEUTROPHILS % (MANUAL) 25 % (1-5); LYMPHOCYTES % (MANUAL) 5 % (22-44); TOTAL CELLS COUNTED 100
[2017-01-10 08:17] LABS: RBC MORPHOLOGY COMMENT NORMAL RBC MORPH
[2017-01-10] MEDS: GuaiFENesin/CODEINE [SUGAR FREE] 200-20MG/10 ML SYRUP UDCUP PO PRN (08:17)
[2017-01-10] MEDS: PANTOPRAZOLE SODIUM 40 MG/VIAL IVP SCH (09:30)
[2017-01-10] MEDS: QUEtiapine FUMARATE 25 MG TABLET PO SCH (09:30)
[2017-01-10] MEDS: DOCUSATE SODIUM 100 MG CAPSULE PO SCH (09:30)
[2017-01-10] MEDS: CARISOPRODOL 350 MG TABLET PO SCH (09:31)
[2017-01-10] MEDS: HEPARIN SODIUM,PORCINE 5,000 UNITS/ML VIAL SQ SCH (09:31)
[2017-01-10 11:36] VITALS: BP 125/73
== END 2017-01-10 15:00 | disposition home or self-care (01) | DRG 720 ==
LOC: EMS 22:46 → 5N 23:30 → 6N 01-09 11:54
PROVIDERS: ADMIT Internal Medicine; ATTEND Internal Medicine
PROC: 5A09357 Assistance with Respiratory Ventilation, Less than 24 Consecutive Hours, Continuous Positive Airway Pressure (ICD-10-PCS; principal; 2017-01-09)
DX: A41.9 Sepsis, unspecified organism (principal); J96.01 Acute respiratory failure with hypoxia; R40.20 Unspecified coma; J18.9 Pneumonia, unspecified organism; E44.0 Moderate protein-calorie malnutrition; J44.0 Chronic obstructive pulmonary disease with (acute) lower respiratory infection; J45.901 Unspecified asthma with (acute) exacerbation; J84.10 Pulmonary fibrosis, unspecified; J44.1 Chronic obstructive pulmonary disease with (acute) exacerbation; E78.00 Pure hypercholesterolemia, unspecified; F17.210 Nicotine dependence, cigarettes, uncomplicated; F25.9 Schizoaffective disorder, unspecified; I10 Essential (primary) hypertension; K21.9 Gastro-esophageal reflux disease without esophagitis; Z20.6 Contact with and (suspected) exposure to human immunodeficiency virus [HIV]; Z68.1 Body mass index [BMI] 19.9 or less, adult; M19.90 Unspecified osteoarthritis, unspecified site; Z79.899 Other long term (current) drug therapy
CPT/HCPCS: 83605; 87081; 93005; 94640; 94644; 94660; 99291; C9113; J0696; J1644; J2405; J2930; J7050

== ENCOUNTER 2017-01-23 06:13 | Inpatient (IN) | payer OTHER ==
[~2017-01-23] VITALS: Ht 152.4 cm; Wt 55.0 kg
[~2017-01-23 06:13] MED LIST changes: -AZIT250T6 PO; -DIPH25 PO; +IPRA4AER IH; -PRED20 PO; -TRUVT PO
[2017-01-23] MEDS ORDERED: 0.9% SODIUM CHLORIDE 15 ML NEB SOLUTION NEB ONE (06:28)
[2017-01-23] MEDS ORDERED: SODIUM CHLORIDE 0.9% 1,000 ML IV ONE (06:30)
[2017-01-23] MEDS ORDERED: EPINEPHrine 1:1,000 [1 MG/ML] AMP IM ONE (06:30)
[2017-01-23] MEDS ORDERED: RANITIDINE HCL 25 MG/ML 2 ML VIAL IVP ONE (06:30)
[2017-01-23] MEDS ORDERED: MethylPREDNISolone SOD SUCC 125 MG/2 ML VIAL IVP ONE (06:30)
[2017-01-23] MEDS ORDERED: DiphenhydrAMINE HCL 50 MG/ML VIAL IM ONE (06:30)
[2017-01-23] MEDS ORDERED: IPRATROPIUM BROMIDE 0.5 MG/2.5 ML NEB SOLUTION NEB ONE (06:30)
[2017-01-23] MEDS ORDERED: ALBUTEROL SULFATE 5 MG/ML 20 ML NEB SOLN [BULK] NEB ONE (06:30)
[2017-01-23] MEDS ORDERED: PredniSONE 20 MG TABLET PO ONE (06:30)
[2017-01-23 06:41] LABS: BASOPHILS % (AUTO) 0.7 % (0.0-2.0); EOSINOPHILS % (AUTO) 1.9 % (1.0-6.0); HEMATOCRIT 42.2 % (36-46); HEMOGLOBIN 13.5 g/dL (12.0-16.0); LYMPHOCYTES # (AUTO) 3.6 K/uL (1.0-4.8); LYMPHOCYTES % (AUTO) 31.5 % (22.0-44.0); MEAN CORPUSCULAR HEMOGLOBIN 31.7 pg (26.0-34.0); MEAN CORPUSCULAR HGB CONC 31.9 G/dL (31.0-37.0); MEAN CORPUSCULAR VOLUME 99 fL (80-100); MONOCYTES # (AUTO) 0.7 K/uL (0.1-1.0); MONOCYTES % (AUTO) 6.2 % (2.0-9.0); NEUTROPHILS # (AUTO) 6.8 K/uL (1.8-7.7); NEUTROPHILS % (AUTO) 59.7 % (40.0-70.0); PLATELET COUNT (AUTO) 285 K/uL (150-450); RED BLOOD CELL COUNT(AUTO) 4.26 MIL/uL (4.00-5.20); RED CELL DISTRIBUTION WIDTH 15.3 % (11.5-14.5); WHITE BLOOD COUNT (AUTO) 11.4 K/uL (4.5-11.0)
[2017-01-23 06:49] LABS: CREATININE 1.25 mg/dL (0.60-1.30); POTASSIUM 4.3 mmol/L (3.5-5.1)
[2017-01-23 06:55] LABS: ALBUMIN 3.1 g/dL (3.4-5.0); BILIRUBIN,TOTAL 0.2 mg/dL (0.1-1.0); TOTAL PROTEIN, SERUM 7.7 g/dL (6.4-8.2)
[2017-01-23 06:58] LABS: LACTIC ACID 1.2 mmol/L (0.4-2.0)
[2017-01-23] MEDS ORDERED: CefTRIAXone 1 GM/DEXTROSE 50 ML IV ONE (09:30)
[2017-01-23] MEDS ORDERED: AZITHROMYCIN 500 MG/NS 250 ML IV ONE (09:30)
[2017-01-23] MEDS ORDERED: ONDANSETRON HCL 4 MG/2 ML VIAL IVP PRN (10:45)
[2017-01-23] MEDS ORDERED: BISACODYL 10 MG RECTAL RECTAL SUPPOSITORY PR PRN (10:45)
[2017-01-23] MEDS ORDERED: MAGNESIUM HYDROXIDE SUSPENSION 30 ML UDCUP PO PRN (10:45)
[2017-01-23] MEDS ORDERED: ACETAMINOPHEN 325 MG TABLET PO PRN (10:45)
[2017-01-23] MEDS: MethylPREDNISolone SOD SUCC 125 MG/2 ML VIAL IVP SCH ×3 (13:48→23:27)
[2017-01-23] MEDS: MORPHINE SULFATE 2 MG/ML SYRINGE IVP PRN ×3 (14:11→22:30)
[2017-01-23] MEDS: ALBUTEROL SULFATE 2.5 MG/0.5 ML NEB SOLUTION NEB SCH ×2 (14:47→19:53)
[2017-01-23] MEDS: IPRATROPIUM BROMIDE 0.5 MG/2.5 ML NEB SOLUTION NEB SCH ×2 (14:47→19:53)
[2017-01-23 14:51] VITALS: BP 116/76
[2017-01-23] MEDS ORDERED: BENZONATATE 100 MG CAPSULE PO SCH (16:00)
[2017-01-23] MEDS: HYDROCODONE/ACETAMINOPHEN 5-325 MG TABLET PO PRN ×2 (16:20→20:46)
[2017-01-23] MEDS: HEPARIN SODIUM,PORCINE 5,000 UNITS/ML VIAL SQ SCH ×2 (16:20→23:27)
[2017-01-23] MEDS: BENZONATATE 100 MG CAPSULE PO SCH ×2 (16:20→20:46)
[2017-01-23] MEDS: CARISOPRODOL 350 MG TABLET PO SCH ×2 (17:07→21:00)
[2017-01-23 19:53] VITALS: BP 124/91
[2017-01-23] MEDS: BUDESONIDE 0.5 MG/2 ML NEB SOLUTION NEB SCH (19:53)
[2017-01-23] MEDS: GuaiFENesin SR 600 MG ER TABLET PO SCH (20:46)
[2017-01-23] MEDS: DOCUSATE SODIUM 100 MG CAPSULE PO SCH (20:47)
[2017-01-23] MEDS ORDERED: FLUTICASONE/VILANTEROL 200-25 MCG/INH INHALER [14] IH SCH (21:00)
[2017-01-23] MEDS: PROMETHAZINE HCL/CODEINE 6.25-10MG/5ML SYRUP UDCUP PO PRN (23:28)
[2017-01-24] VITALS (7 sets, daily range): BP systolic 114–148; BP diastolic 69–93
[2017-01-24] MEDS: ZOLPIDEM TARTRATE 5 MG TABLET PO PRN ×2 (01:46→21:15)
[2017-01-24] MEDS: ALBUTEROL SULFATE 2.5 MG/0.5 ML NEB SOLUTION NEB SCH ×4 (02:00→20:38)
[2017-01-24] MEDS: IPRATROPIUM BROMIDE 0.5 MG/2.5 ML NEB SOLUTION NEB SCH ×4 (02:00→20:38)
[2017-01-24] MEDS: MORPHINE SULFATE 2 MG/ML SYRINGE IVP PRN ×4 (05:31→21:15)
[2017-01-24] MEDS: MethylPREDNISolone SOD SUCC 125 MG/2 ML VIAL IVP SCH ×4 (05:31→23:27)
[2017-01-24 06:43] LABS: BASOPHILS % (AUTO) 0.2 % (0.0-2.0); EOSINOPHILS % (AUTO) 0 % (1.0-6.0); HEMATOCRIT 33.1 % (36-46); HEMOGLOBIN 10.6 g/dL (12.0-16.0); LYMPHOCYTES # (AUTO) 0.6 K/uL (1.0-4.8); MEAN CORPUSCULAR HEMOGLOBIN 31.6 pg (26.0-34.0); MEAN CORPUSCULAR HGB CONC 32.1 G/dL (31.0-37.0); MEAN CORPUSCULAR VOLUME 98 fL (80-100); MONOCYTES # (AUTO) 0.3 K/uL (0.1-1.0); MONOCYTES % (AUTO) 3.4 % (2.0-9.0); NEUTROPHILS # (AUTO) 8.3 K/uL (1.8-7.7); PLATELET COUNT (AUTO) 313 K/uL (150-450); RED BLOOD CELL COUNT(AUTO) 3.37 MIL/uL (4.00-5.20); RED CELL DISTRIBUTION WIDTH 14.9 % (11.5-14.5); WHITE BLOOD COUNT (AUTO) 9.3 K/uL (4.5-11.0)
[2017-01-24 06:57] LABS: NEUTROPHILS % (AUTO) 89.4 % (40.0-70.0)
[2017-01-24 07:03] LABS: ANION GAP 10 mmol/L (8-16); CALCIUM, TOTAL 8.6 mg/dL (8.8-10.5); CARBON DIOXIDE 25 mmol/L (22-29); CHLORIDE 106 mmol/L (98-107); CREATININE 0.96 mg/dL (0.60-1.30); GLOMERULAR FILTR. RATE CALC > 60 mL/min (>60); PHOSPHORUS 2.8 mg/dL (2.5-4.9); POTASSIUM 4.4 mmol/L (3.5-5.1); SODIUM SERUM 141 mmol/L (136-145); THYROID STIMULATING HORMONE 0.09 uIU/mL (0.36-3.74); UREA NITROGEN, BLOOD 12 mg/dL (7-18)
[2017-01-24] MEDS: HYDROCODONE/ACETAMINOPHEN 5-325 MG TABLET PO PRN ×3 (07:39→22:26)
[2017-01-24] MEDS: DOCUSATE SODIUM 100 MG CAPSULE PO SCH ×2 (07:40→21:03)
[2017-01-24] MEDS: GuaiFENesin SR 600 MG ER TABLET PO SCH ×2 (07:40→21:03)
[2017-01-24] MEDS: CARISOPRODOL 350 MG TABLET PO SCH ×2 (07:40→21:03)
[2017-01-24] MEDS: BENZONATATE 100 MG CAPSULE PO SCH ×3 (07:41→21:03)
[2017-01-24] MEDS: PANTOPRAZOLE SODIUM 40 MG DR TABLET PO SCH (07:41)
[2017-01-24] MEDS: HEPARIN SODIUM,PORCINE 5,000 UNITS/ML VIAL SQ SCH ×3 (07:44→23:27)
[2017-01-24] MEDS: BUDESONIDE 0.5 MG/2 ML NEB SOLUTION NEB SCH ×2 (08:25→20:38)
[2017-01-24 08:45] LABS: RBC MORPHOLOGY COMMENT NORMAL RBC MORPH
[2017-01-24 09:43] LABS: ABG A-A DIFF O2 36.2 mmHg (10-20.0); ABG BASE EXCESS -1.9 mmol/L (-2.0-3.0); ABG HCO3 23.2 mmol/L (22.0-26.0); ABG OXYHEMOGLOBIN 93.7 % (94.0-100.0); ABG PCO2 36 mmHg (35-45); ABG PH 7.419 (7.35-7.450)
[2017-01-24] MEDS ORDERED: SODIUM CHLORIDE 0.9% 500 ML IV ONE (09:43)
[2017-01-24 09:53] LABS: ALLEN TEST, BLOOD GAS Positive
[2017-01-24] MEDS: CefTRIAXone 1 GM/DEXTROSE 50 ML IV SCH (10:18)
[2017-01-24] MEDS: AZITHROMYCIN 500 MG/NS 250 ML IV SCH (11:08)
[2017-01-24] MEDS: PROMETHAZINE HCL/CODEINE 6.25-10MG/5ML SYRUP UDCUP PO PRN ×2 (15:15→22:26)
[2017-01-25] MEDS: ALBUTEROL SULFATE 2.5 MG/0.5 ML NEB SOLUTION NEB SCH ×4 (02:00→20:01)
[2017-01-25] MEDS: IPRATROPIUM BROMIDE 0.5 MG/2.5 ML NEB SOLUTION NEB SCH ×4 (02:00→20:01)
[2017-01-25] MEDS: MORPHINE SULFATE 2 MG/ML SYRINGE IVP PRN ×5 (04:07→22:50)
[2017-01-25 04:26] VITALS: BP 132/87
[2017-01-25] MEDS: MethylPREDNISolone SOD SUCC 125 MG/2 ML VIAL IVP SCH ×4 (05:47→22:49)
[2017-01-25] MEDS: HYDROCODONE/ACETAMINOPHEN 5-325 MG TABLET PO PRN ×3 (05:49→17:38)
[2017-01-25] MEDS: PROMETHAZINE HCL/CODEINE 6.25-10MG/5ML SYRUP UDCUP PO PRN ×2 (07:07→17:00)
[2017-01-25] MEDS: BUDESONIDE 0.5 MG/2 ML NEB SOLUTION NEB SCH ×2 (07:23→20:01)
[2017-01-25 07:58] VITALS: BP 153/85
[2017-01-25] MEDS: GuaiFENesin SR 600 MG ER TABLET PO SCH ×2 (08:03→21:11)
[2017-01-25] MEDS: CARISOPRODOL 350 MG TABLET PO SCH ×2 (08:03→21:11)
[2017-01-25] MEDS: BENZONATATE 100 MG CAPSULE PO SCH ×3 (08:03→21:11)
[2017-01-25] MEDS: HEPARIN SODIUM,PORCINE 5,000 UNITS/ML VIAL SQ SCH ×3 (08:03→22:49)
[2017-01-25] MEDS: DOCUSATE SODIUM 100 MG CAPSULE PO SCH ×2 (08:03→21:11)
[2017-01-25] MEDS: PANTOPRAZOLE SODIUM 40 MG DR TABLET PO SCH (08:03)
[2017-01-25] MEDS: ALBUTEROL SULFATE 2.5 MG/0.5 ML NEB SOLUTION NEB PRN (09:46)
[2017-01-25] MEDS: IPRATROPIUM BROMIDE 0.5 MG/2.5 ML NEB SOLUTION NEB PRN (09:47)
[2017-01-25] MEDS: CefTRIAXone 1 GM/DEXTROSE 50 ML IV SCH (10:10)
[2017-01-25] MEDS: AZITHROMYCIN 500 MG/NS 250 ML IV SCH (10:48)
[2017-01-25 12:23] VITALS: BP 139/88
[2017-01-25 15:30] VITALS: BP 157/88
[2017-01-25 20:07] VITALS: BP 133/81
[2017-01-25] MEDS: ZOLPIDEM TARTRATE 5 MG TABLET PO PRN (22:49)
[2017-01-25 23:49] VITALS: BP 143/87
[2017-01-26] MEDS: HYDROCODONE/ACETAMINOPHEN 5-325 MG TABLET PO PRN ×2 (00:44→08:10)
[2017-01-26] MEDS: ALBUTEROL SULFATE 2.5 MG/0.5 ML NEB SOLUTION NEB SCH ×2 (02:00→08:16)
[2017-01-26] MEDS: IPRATROPIUM BROMIDE 0.5 MG/2.5 ML NEB SOLUTION NEB SCH ×2 (02:00→08:16)
[2017-01-26] MEDS: MORPHINE SULFATE 2 MG/ML SYRINGE IVP PRN (02:51)
[2017-01-26 04:37] VITALS: BP 150/82
[2017-01-26] MEDS: IPRATROPIUM BROMIDE 0.5 MG/2.5 ML NEB SOLUTION NEB PRN (05:04)
[2017-01-26] MEDS: ALBUTEROL SULFATE 2.5 MG/0.5 ML NEB SOLUTION NEB PRN (05:04)
[2017-01-26] MEDS: MethylPREDNISolone SOD SUCC 125 MG/2 ML VIAL IVP SCH (06:01)
[2017-01-26 07:50] VITALS: BP 154/108
[2017-01-26] MEDS: PANTOPRAZOLE SODIUM 40 MG DR TABLET PO SCH (08:08)
[2017-01-26] MEDS: CARISOPRODOL 350 MG TABLET PO SCH (08:09)
[2017-01-26] MEDS: GuaiFENesin SR 600 MG ER TABLET PO SCH (08:09)
[2017-01-26] MEDS: BENZONATATE 100 MG CAPSULE PO SCH (08:10)
[2017-01-26] MEDS: HEPARIN SODIUM,PORCINE 5,000 UNITS/ML VIAL SQ SCH (08:10)
[2017-01-26] MEDS: DOCUSATE SODIUM 100 MG CAPSULE PO SCH (08:14)
[2017-01-26] MEDS: BUDESONIDE 0.5 MG/2 ML NEB SOLUTION NEB SCH (08:16)
== END 2017-01-26 09:40 | disposition left against medical advice (07) | DRG 140 ==
LOC: EMS 06:15 → 6N 13:30
PROVIDERS: ADMIT Internal Medicine; ATTEND Internal Medicine
PROC: 5A09357 Assistance with Respiratory Ventilation, Less than 24 Consecutive Hours, Continuous Positive Airway Pressure (ICD-10-PCS; principal; 2017-01-23)
DX: J44.1 Chronic obstructive pulmonary disease with (acute) exacerbation (principal); J96.00 Acute respiratory failure, unspecified whether with hypoxia or hypercapnia; E44.0 Moderate protein-calorie malnutrition; B18.2 Chronic viral hepatitis C; E78.00 Pure hypercholesterolemia, unspecified; E78.5 Hyperlipidemia, unspecified; F20.9 Schizophrenia, unspecified; F17.210 Nicotine dependence, cigarettes, uncomplicated; F99 Mental disorder, not otherwise specified; M19.90 Unspecified osteoarthritis, unspecified site; I10 Essential (primary) hypertension; K21.9 Gastro-esophageal reflux disease without esophagitis; Z82.49 Family history of ischemic heart disease and other diseases of the circulatory system; Z82.5 Family history of asthma and other chronic lower respiratory diseases; Z79.899 Other long term (current) drug therapy; Z68.23 Body mass index [BMI] 23.0-23.9, adult
CPT/HCPCS: 82805; 83605; 83735; 84100; 84443; 87040; 93005; 94640; 94644; 94660; 99291; J0171; J0456; J0696; J1644; J2270; J2780; J2930; J7030; J7040

== ENCOUNTER 2017-02-24 22:39 | Inpatient (IN) | payer OTHER ==
[~2017-02-24] VITALS: Ht 177.8 cm; Wt 51.9 kg
[2017-02-24 23:02] LABS: GLUCOSE,POINT OF CARE 93 MG/DL (70-110)
[2017-02-24] MEDS ORDERED: ALBUTEROL SULFATE 5 MG/ML 20 ML NEB SOLN [BULK] NEB ONE ×3 (23:09→23:15)
[2017-02-24] MEDS ORDERED: IPRATROPIUM BROMIDE 0.5 MG/2.5 ML NEB SOLUTION NEB ONE ×2 (23:10→23:15)
[2017-02-24] MEDS ORDERED: 0.9% SODIUM CHLORIDE 5 ML NEB SOLUTION NEB ONE (23:10)
[2017-02-24] MEDS ORDERED: ALPR1TAB7 PO (23:15)
[2017-02-24] MEDS ORDERED: VENL-67 PO (23:15)
[2017-02-24] MEDS ORDERED: OXYC30TA2 PO (23:15)
[2017-02-24] MEDS ORDERED: ALBU8HFA PO (23:15)
[2017-02-24] MEDS ORDERED: EMTR1TAB13 PO (23:15)
[2017-02-24] MEDS ORDERED: AMLO5TAB66 PO (23:15)
[2017-02-24] MEDS ORDERED: MethylPREDNISolone SOD SUCC 125 MG/2 ML VIAL IVP ONE (23:30)
[2017-02-24 23:44] LABS: BASOPHILS % (AUTO) 1.7 % (0.0-2.0); EOSINOPHILS % (AUTO) 5.4 % (1.0-6.0); HEMATOCRIT 46.1 % (36-46); HEMOGLOBIN 14.5 g/dL (12.0-16.0); LYMPHOCYTES # (AUTO) 2.9 K/uL (1.0-4.8); LYMPHOCYTES % (AUTO) 53.5 % (22.0-44.0); MEAN CORPUSCULAR HEMOGLOBIN 30.4 pg (26.0-34.0); MEAN CORPUSCULAR HGB CONC 31.5 G/dL (31.0-37.0); MEAN CORPUSCULAR VOLUME 96 fL (80-100); MONOCYTES # (AUTO) 0.5 K/uL (0.1-1.0); MONOCYTES % (AUTO) 9.3 % (2.0-9.0); NEUTROPHILS # (AUTO) 1.7 K/uL (1.8-7.7); NEUTROPHILS % (AUTO) 30.1 % (40.0-70.0); PLATELET COUNT (AUTO) 264 K/uL (150-450); RED BLOOD CELL COUNT(AUTO) 4.78 MIL/uL (4.00-5.20); WHITE BLOOD COUNT (AUTO) 5.5 K/uL (4.5-11.0)
[2017-02-24 23:49] LABS: PROTHROMBIN TIME 10.7 SEC (9.4-11.6)
[2017-02-24 23:53] LABS: ANION GAP 9 mmol/L (8-16); CALCIUM, TOTAL 9.3 mg/dL (8.8-10.5); CARBON DIOXIDE 25 mmol/L (22-29); CHLORIDE 104 mmol/L (98-107); CREATININE 1.15 mg/dL (0.60-1.30); GLOMERULAR FILTR. RATE CALC 58 mL/min (>60); POTASSIUM 4.2 mmol/L (3.5-5.1); SODIUM SERUM 138 mmol/L (136-145); UREA NITROGEN, BLOOD 12 mg/dL (7-18)
[2017-02-25] VITALS (7 sets, daily range): BP systolic 131–155; BP diastolic 69–96
[2017-02-25 00:03] LABS: BILIRUBIN,TOTAL 0.2 mg/dL (0.1-1.0)
[2017-02-25 00:27] LABS: B-TYPE NATRIURETIC PEPTIDE 16 pg/mL (0-100)
[2017-02-25 00:33] LABS: ALANINE AMINOTRANSFERASE 22 U/L (12-78); ASPARTATE AMINOTRANSFERASE 26 U/L (15-37); CREATINE KINASE MB 2.2 ng/mL (0-5); CREATINE KINASE, TOTAL 201 U/L (26-192); TOTAL PROTEIN, SERUM 8.1 g/dL (6.4-8.2)
[2017-02-25] MEDS ORDERED: KETOROLAC TROMETHAMINE 30 MG/ML VIAL IVP ONE (00:45)
[2017-02-25 00:59] LABS: APPEARANCE,URINE CLEAR (CLEAR); GLUCOSE, URINE (UA) NEGATIVE (NEGATIVE); KETONES,URINE NEGATIVE (NEGATIVE); LEUKOCYTE ESTERASE ,URINE NEGATIVE (NEGATIVE); OCCULT BLOOD,URINE NEGATIVE (NEGATIVE); PROTEIN,URINE POS 1+ (NEGATIVE)
[2017-02-25 01:01] LABS: ADD UA MICROSCOPIC NO
[2017-02-25] MEDS ORDERED: IPRATROPIUM BROMIDE 0.5 MG/2.5 ML NEB SOLUTION NEB ONE (01:30)
[2017-02-25] MEDS ORDERED: ALBUTEROL SULFATE 5 MG/ML 20 ML NEB SOLN [BULK] NEB ONE (01:30)
[2017-02-25] MEDS ORDERED: MORPHINE SULFATE 4 MG/ML SYRINGE IVP ONE (01:30)
[2017-02-25] MEDS ORDERED: ACETAMINOPHEN 325 MG TABLET PO PRN ×2 (01:30→07:30)
[2017-02-25] MEDS ORDERED: ONDANSETRON HCL 4 MG/2 ML VIAL IVP PRN ×2 (01:30→07:30)
[2017-02-25] MEDS ORDERED: 0.9% SODIUM CHLORIDE 10 ML SYRINGE IVP PRN (01:30)
[2017-02-25] MEDS ORDERED: 0.9% SODIUM CHLORIDE 5 ML NEB SOLUTION NEB ONE (02:14)
[2017-02-25] MEDS ORDERED: ALBUTEROL SULFATE 2.5 MG/0.5 ML NEB SOLUTION NEB PRN ×3 (07:30→07:45)
[2017-02-25] MEDS ORDERED: MORPHINE SULFATE 4 MG/ML SYRINGE IVP PRN (07:30)
[2017-02-25] MEDS ORDERED: IPRATROPIUM BROMIDE 0.5 MG/2.5 ML NEB SOLUTION NEB PRN ×2 (07:30)
[2017-02-25] MEDS ORDERED: MAGNESIUM HYDROXIDE SUSPENSION 30 ML UDCUP PO PRN (07:30)
[2017-02-25] MEDS ORDERED: BISACODYL 10 MG RECTAL RECTAL SUPPOSITORY PR PRN (07:30)
[2017-02-25] MEDS ORDERED: ZOLPIDEM TARTRATE 5 MG TABLET PO PRN (07:30)
[2017-02-25] MEDS ORDERED: OXYCODONE HCL PO PRN (07:30)
[2017-02-25] MEDS ORDERED: IPRATROPIUM BROMIDE 0.5 MG/2.5 ML NEB SOLUTION NEB SCH ×2 (07:45→08:00)
[2017-02-25 08:14] LABS: BASOPHILS % (AUTO) 0.3 % (0.0-2.0); EOSINOPHILS % (AUTO) 0.5 % (1.0-6.0); HEMATOCRIT 41.5 % (36-46); HEMOGLOBIN 13.2 g/dL (12.0-16.0); LYMPHOCYTES # (AUTO) 0.9 K/uL (1.0-4.8); LYMPHOCYTES % (AUTO) 20.7 % (22.0-44.0); MEAN CORPUSCULAR HEMOGLOBIN 30.5 pg (26.0-34.0); MEAN CORPUSCULAR HGB CONC 31.9 G/dL (31.0-37.0); MEAN CORPUSCULAR VOLUME 96 fL (80-100); MONOCYTES % (AUTO) 0.8 % (2.0-9.0); NEUTROPHILS # (AUTO) 3.2 K/uL (1.8-7.7); NEUTROPHILS % (AUTO) 77.7 % (40.0-70.0); PLATELET COUNT (AUTO) 228 K/uL (150-450); RED BLOOD CELL COUNT(AUTO) 4.35 MIL/uL (4.00-5.20); WHITE BLOOD COUNT (AUTO) 4.1 K/uL (4.5-11.0)
[2017-02-25] MEDS: DOCUSATE SODIUM 100 MG CAPSULE PO SCH ×2 (08:21→20:49)
[2017-02-25] MEDS: HEPARIN SODIUM,PORCINE 5,000 UNITS/ML VIAL SQ SCH ×3 (08:21→23:06)
[2017-02-25] MEDS: HYDROCODONE/ACETAMINOPHEN 5-325 MG TABLET PO PRN ×4 (08:22→21:49)
[2017-02-25] MEDS: PANTOPRAZOLE SODIUM 40 MG/VIAL IVP SCH (08:22)
[2017-02-25] MEDS: AmLODIPine BESYLATE 5 MG TABLET PO SCH (08:22)
[2017-02-25] MEDS: CARISOPRODOL 350 MG TABLET PO SCH (08:22)
[2017-02-25 08:24] LABS: ANION GAP 8 mmol/L (8-16); CALCIUM, TOTAL 9.4 mg/dL (8.8-10.5); CARBON DIOXIDE 25 mmol/L (22-29); CHLORIDE 104 mmol/L (98-107); CREATININE 1.02 mg/dL (0.60-1.30); GLOMERULAR FILTR. RATE CALC > 60 mL/min (>60); POTASSIUM 4.9 mmol/L (3.5-5.1); SODIUM SERUM 137 mmol/L (136-145); UREA NITROGEN, BLOOD 12 mg/dL (7-18)
[2017-02-25 08:30] LABS: ALANINE AMINOTRANSFERASE 21 U/L (12-78); ALBUMIN 3.9 g/dL (3.4-5.0); ASPARTATE AMINOTRANSFERASE 24 U/L (15-37); BILIRUBIN,TOTAL 0.2 mg/dL (0.1-1.0); TOTAL PROTEIN, SERUM 7.9 g/dL (6.4-8.2)
[2017-02-25] MEDS ORDERED: [UNRECOGNIZED DRUG - OTHER] PO SCH (09:00)
[2017-02-25] MEDS: QUEtiapine FUMARATE 25 MG TABLET PO SCH ×2 (09:09→20:49)
[2017-02-25] MEDS: VENLAFAXINE HCL 75 MG ER CAPSULE PO SCH (09:10)
[2017-02-25] MEDS: TIOTROPIUM BROMIDE 18 MCG/INH HANDIHALER [5] IH SCH (09:10)
[2017-02-25] MEDS ORDERED: DOLUTEGRAVIR SODIUM 50 MG TABLET PO SCH (10:45)
[2017-02-25] MEDS ORDERED: QUET25TA PO (10:53)
[2017-02-25] MEDS ORDERED: DOLU50TA PO (10:55)
[2017-02-25] MEDS: MethylPREDNISolone SOD SUCC 40 MG/ML VIAL IVP SCH ×3 (11:32→23:06)
[2017-02-25] MEDS ORDERED: MethylPREDNISolone SOD SUCC 125 MG/2 ML VIAL IVP SCH (12:00)
[2017-02-25] MEDS: IPRATROPIUM BROMIDE 0.5 MG/2.5 ML NEB SOLUTION NEB SCH ×4 (12:37→22:54)
[2017-02-25] MEDS: ALBUTEROL SULFATE 2.5 MG/0.5 ML NEB SOLUTION NEB SCH ×4 (12:37→22:53)
[2017-02-26 04:31] VITALS: BP 146/92
[2017-02-26] MEDS: MethylPREDNISolone SOD SUCC 40 MG/ML VIAL IVP SCH (04:52)
[2017-02-26 07:10] LABS: BASOPHILS % (AUTO) 0.2 % (0.0-2.0); EOSINOPHILS % (AUTO) 0 % (1.0-6.0); HEMOGLOBIN 12.7 g/dL (12.0-16.0); LYMPHOCYTES % (AUTO) 11.3 % (22.0-44.0); MEAN CORPUSCULAR HGB CONC 31.8 G/dL (31.0-37.0); MEAN CORPUSCULAR VOLUME 98 fL (80-100); MONOCYTES # (AUTO) 0.2 K/uL (0.1-1.0); MONOCYTES % (AUTO) 2.2 % (2.0-9.0); NEUTROPHILS # (AUTO) 7.4 K/uL (1.8-7.7); PLATELET COUNT (AUTO) 245 K/uL (150-450); RED CELL DISTRIBUTION WIDTH 15.4 % (11.5-14.5); WHITE BLOOD COUNT (AUTO) 8.5 K/uL (4.5-11.0)
[2017-02-26] MEDS: ALBUTEROL SULFATE 2.5 MG/0.5 ML NEB SOLUTION NEB SCH ×2 (07:17→11:00)
[2017-02-26] MEDS: IPRATROPIUM BROMIDE 0.5 MG/2.5 ML NEB SOLUTION NEB SCH ×2 (07:17→11:00)
[2017-02-26 07:25] VITALS: BP 144/75
[2017-02-26 07:26] LABS: NEUTROPHILS % (AUTO) 86.3 % (40.0-70.0)
[2017-02-26 07:34] LABS: ALANINE AMINOTRANSFERASE 20 U/L (12-78); ALBUMIN 3.5 g/dL (3.4-5.0); ANION GAP 6 mmol/L (8-16); ASPARTATE AMINOTRANSFERASE 17 U/L (15-37); BILIRUBIN,TOTAL 0.3 mg/dL (0.1-1.0); CALCIUM, TOTAL 9.2 mg/dL (8.8-10.5); CARBON DIOXIDE 29 mmol/L (22-29); CHLORIDE 102 mmol/L (98-107); CREATININE 1.06 mg/dL (0.60-1.30); GLOMERULAR FILTR. RATE CALC > 60 mL/min (>60); POTASSIUM 4.1 mmol/L (3.5-5.1); SODIUM SERUM 137 mmol/L (136-145); TOTAL PROTEIN, SERUM 7.3 g/dL (6.4-8.2); UREA NITROGEN, BLOOD 18 mg/dL (7-18)
[2017-02-26] MEDS: TIOTROPIUM BROMIDE 18 MCG/INH HANDIHALER [5] IH SCH (07:57)
[2017-02-26] MEDS: HEPARIN SODIUM,PORCINE 5,000 UNITS/ML VIAL SQ SCH (07:58)
[2017-02-26] MEDS: AmLODIPine BESYLATE 5 MG TABLET PO SCH (07:58)
[2017-02-26] MEDS: PANTOPRAZOLE SODIUM 40 MG/VIAL IVP SCH (07:58)
[2017-02-26] MEDS: VENLAFAXINE HCL 75 MG ER CAPSULE PO SCH (07:58)
[2017-02-26] MEDS: CARISOPRODOL 350 MG TABLET PO SCH (07:59)
[2017-02-26] MEDS: QUEtiapine FUMARATE 25 MG TABLET PO SCH (07:59)
[2017-02-26] MEDS: DOCUSATE SODIUM 100 MG CAPSULE PO SCH (07:59)
[2017-02-26] MEDS: HYDROCODONE/ACETAMINOPHEN 5-325 MG TABLET PO PRN (08:00)
[2017-02-26 12:15] VITALS: BP 130/88
== END 2017-02-26 12:15 | disposition left against medical advice (07) | DRG 140 ==
LOC: EMS 22:41 → 6N 02-25 01:00
PROVIDERS: ADMIT Hospitalist; ATTEND Hospitalist
DX: J44.1 Chronic obstructive pulmonary disease with (acute) exacerbation (principal); E43 Unspecified severe protein-calorie malnutrition; B20 Human immunodeficiency virus [HIV] disease; I10 Essential (primary) hypertension; F20.9 Schizophrenia, unspecified; B18.2 Chronic viral hepatitis C; M54.5 Low back pain; F14.10 Cocaine abuse, uncomplicated; Z53.29 Procedure and treatment not carried out because of patient's decision for other reasons; M19.90 Unspecified osteoarthritis, unspecified site; K21.9 Gastro-esophageal reflux disease without esophagitis; J45.909 Unspecified asthma, uncomplicated; F17.210 Nicotine dependence, cigarettes, uncomplicated; Z71.6 Tobacco abuse counseling; Z72.89 Other problems related to lifestyle; Z68.1 Body mass index [BMI] 19.9 or less, adult; Z79.899 Other long term (current) drug therapy; Z82.49 Family history of ischemic heart disease and other diseases of the circulatory system; Z82.5 Family history of asthma and other chronic lower respiratory diseases; E78.00 Pure hypercholesterolemia, unspecified
CPT/HCPCS: 82962; 87081; 93005; 94640; 94644; 94645; 96374; 96375; 99285; C9113; J1644; J1885; J2270; J2920; J2930

== ENCOUNTER 2017-03-30 04:13 | Inpatient (IN) | payer OTHER ==
[~2017-03-30] VITALS: Ht 172.7 cm; Wt 52.3 kg
[~2017-03-30 04:13] MED LIST changes: +ALBU17AE2 IH; +ALBU8HFA PO; +ALBUTEROL IH; +ALPR1TAB7 PO; +AMLO-511 PO; +AMLO-512 PO; +AMLO5TAB66 PO; +ASPI-825 PO; +ATOR10TA84 PO; +ATOR40TA28 PO; +AZIT250T6 PO; +BENA10TA3 PO; +COMBIH IH; +DARU400T PO; +DIAZ10TA PO; +DIPH25 PO; +DOLU50TA PO; +EMTR1TAB13 PO; +FLUC200T PO; +FLUT1DIS3 IH; +HC130O TP; +MEDS UNVERIFIED; +METH10TA2 PO; +METO-325 PO; +NOCURR; +OXYC30TA2 PO; +PANT40TA25 PO; +PRED10TA3 PO; +PRED20 PO; +PRED20TA3 PO; +PRED5TAB44 PO; +PROM5SYR PO; +QUET200T PO; +QUET25TA PO; +RITO100C PO; +SOMA; +SOMA PO; +TELM20 PO; +TRUVT PO; +VENL-67 PO; +VICODEN PO; +VICOT PO; +[UNRECOGNIZED DRUG - CODE] PO; +combivent IH; +doxycycline PO
[2017-03-30] MEDS ORDERED: ALBUTEROL SULFATE 5 MG/ML 20 ML NEB SOLN [BULK] NEB ONE ×2 (04:18→04:45)
[2017-03-30] MEDS ORDERED: IPRATROPIUM BROMIDE 0.5 MG/2.5 ML NEB SOLUTION NEB ONE ×2 (04:19→04:45)
[2017-03-30] MEDS ORDERED: 0.9% SODIUM CHLORIDE 5 ML NEB SOLUTION NEB ONE ×2 (04:19→04:54)
[2017-03-30] MEDS ORDERED: LORazepam 2 MG/ML VIAL ONE (04:42)
[2017-03-30] MEDS ORDERED: LORazepam 2 MG/ML VIAL IM ONE (04:45)
[2017-03-30] MEDS ORDERED: MethylPREDNISolone SOD SUCC 125 MG/2 ML VIAL IVP ONE (05:00)
[2017-03-30] MEDS ORDERED: HALOPERIDOL LACTATE 5 MG/ML VIAL IM ONE (05:00)
[2017-03-30] MEDS: AZITHROMYCIN 500 MG/NS 250 ML IV ONE ×2 (05:01→05:40)
[2017-03-30 05:12] LABS: ABG A-A DIFF O2 32.7 mmHg (10-20.0); ABG BASE EXCESS -2.7 mmol/L (-2.0-3.0); ABG HCO3 20.4 mmol/L (22.0-26.0); ABG OXYHEMOGLOBIN 94.4 % (94.0-100.0); ABG PH 7.115 (7.35-7.450); TEMPERATURE, FAHRENHEIT, BG 98.6 FAHREN (96.0-98.6)
[2017-03-30 05:13] LABS: ABG PCO2 85 mmHg (35-45); ALLEN TEST, BLOOD GAS Positive
[2017-03-30 05:28] LABS: BASOPHILS # (AUTO) 0.04 K/uL (0.00-0.20); BASOPHILS % (AUTO) 0.4 % (0.0-2.0); EOSINOPHILS # (AUTO) 0.25 K/uL (0.00-0.70); EOSINOPHILS % (AUTO) 2.52 % (1.0-6.0); HEMATOCRIT 43.7 % (36-46); HEMOGLOBIN 14.2 g/dL (12.0-16.0); LYMPHOCYTES # (AUTO) 3.9 K/uL (1.0-4.8); MEAN CORPUSCULAR HEMOGLOBIN 31.8 pg (26.0-34.0); MEAN CORPUSCULAR HGB CONC 32.6 G/dL (31.0-37.0); MEAN CORPUSCULAR VOLUME 98 fL (80-100); MONOCYTES # (AUTO) 0.5 K/uL (0.1-1.0); MONOCYTES % (AUTO) 5.2 % (2.0-9.0); NEUTROPHILS # (AUTO) 5.1 K/uL (1.8-7.7); NEUTROPHILS % (AUTO) 51.9 % (40.0-70.0); PLATELET COUNT (AUTO) 256 K/uL (150-450); RED BLOOD CELL COUNT(AUTO) 4.47 MIL/uL (4.00-5.20); RED CELL DISTRIBUTION WIDTH 15.9 % (11.5-14.5); WHITE BLOOD COUNT (AUTO) 9.8 K/uL (4.5-11.0)
[2017-03-30 05:37] LABS: ANION GAP 7 mmol/L (8-16); CALCIUM, TOTAL 9.1 mg/dL (8.8-10.5); CARBON DIOXIDE 29 mmol/L (22-29); CHLORIDE 101 mmol/L (98-107); CREATININE 1.31 mg/dL (0.60-1.30); GLOMERULAR FILTR. RATE CALC 50 mL/min (>60); POTASSIUM 3.6 mmol/L (3.5-5.1); SODIUM SERUM 137 mmol/L (136-145); UREA NITROGEN, BLOOD 21 mg/dL (7-18)
[2017-03-30 05:44] LABS: ALANINE AMINOTRANSFERASE 24 U/L (12-78); ASPARTATE AMINOTRANSFERASE 26 U/L (15-37); BILIRUBIN,TOTAL 0.4 mg/dL (0.1-1.0); TOTAL PROTEIN, SERUM 8.1 g/dL (6.4-8.2)
[2017-03-30] MEDS ORDERED: ACETAMINOPHEN 325 MG TABLET PO PRN ×2 (05:45→17:00)
[2017-03-30] MEDS ORDERED: ONDANSETRON HCL 4 MG/2 ML VIAL IVP PRN ×2 (05:45→17:00)
[2017-03-30] MEDS ORDERED: 0.9% SODIUM CHLORIDE 10 ML SYRINGE IVP PRN (05:45)
[2017-03-30] MEDS ORDERED: SODIUM CHLORIDE 0.9% 1,000 ML IV ONE (06:00)
[2017-03-30 06:57] VITALS: BP 136/55
[2017-03-30 11:10] VITALS: BP 157/94
[2017-03-30 15:51] VITALS: BP 148/86
[2017-03-30] MEDS ORDERED: BISACODYL 10 MG RECTAL RECTAL SUPPOSITORY PR PRN (17:00)
[2017-03-30] MEDS ORDERED: HYDROCODONE/ACETAMINOPHEN 5-325 MG TABLET PO PRN ×2 (17:00)
[2017-03-30] MEDS ORDERED: MORPHINE SULFATE 2 MG/ML SYRINGE IVP PRN (17:00)
[2017-03-30] MEDS ORDERED: MAGNESIUM HYDROXIDE SUSPENSION 30 ML UDCUP PO PRN (17:00)
[2017-03-30] MEDS ORDERED: IPRATROPIUM BROMIDE 0.5 MG/2.5 ML NEB SOLUTION NEB PRN (17:00)
[2017-03-30] MEDS ORDERED: ALBUTEROL SULFATE 2.5 MG/0.5 ML NEB SOLUTION NEB PRN (17:00)
[2017-03-30] MEDS ORDERED: ZOLPIDEM TARTRATE 5 MG TABLET PO PRN (17:00)
[2017-03-30] MEDS ORDERED: ALPRAZolam 1 MG TABLET PO PRN (17:00)
[2017-03-30] MEDS ORDERED: [UNRECOGNIZED DRUG - OTHER] PO PRN (17:00)
[2017-03-30] MEDS: MethylPREDNISolone SOD SUCC 125 MG/2 ML VIAL IVP SCH (18:11)
[2017-03-30] MEDS: ALBUTEROL SULFATE 2.5 MG/0.5 ML NEB SOLUTION NEB SCH ×2 (19:00→23:00)
[2017-03-30] MEDS: IPRATROPIUM BROMIDE 0.5 MG/2.5 ML NEB SOLUTION NEB SCH ×2 (19:00→23:00)
[2017-03-30 19:54] VITALS: BP 153/97
[2017-03-30] MEDS: DOCUSATE SODIUM 100 MG CAPSULE PO SCH (20:58)
[2017-03-30] MEDS: QUEtiapine FUMARATE 25 MG TABLET PO SCH (21:00)
[2017-03-30] MEDS ORDERED: ALPRAZolam 0.5 MG TABLET PO PRN (21:33)
[2017-03-30 23:41] VITALS: BP 130/78
[2017-03-31] MEDS: MethylPREDNISolone SOD SUCC 125 MG/2 ML VIAL IVP SCH ×5 (00:23→23:05)
[2017-03-31] MEDS: HEPARIN SODIUM,PORCINE 5,000 UNITS/ML VIAL SQ SCH ×4 (00:25→23:05)
[2017-03-31 04:37] VITALS: BP 133/88
[2017-03-31] MEDS: ALBUTEROL SULFATE 2.5 MG/0.5 ML NEB SOLUTION NEB SCH ×6 (05:08→22:28)
[2017-03-31] MEDS: IPRATROPIUM BROMIDE 0.5 MG/2.5 ML NEB SOLUTION NEB SCH ×6 (05:08→22:28)
[2017-03-31 07:58] VITALS: BP 150/93
[2017-03-31] MEDS: PANTOPRAZOLE SODIUM 40 MG/VIAL IVP SCH (08:52)
[2017-03-31] MEDS: CARISOPRODOL 350 MG TABLET PO SCH (08:53)
[2017-03-31] MEDS: QUEtiapine FUMARATE 25 MG TABLET PO SCH ×2 (08:53→20:35)
[2017-03-31] MEDS: AmLODIPine BESYLATE 5 MG TABLET PO SCH (08:53)
[2017-03-31] MEDS: DOCUSATE SODIUM 100 MG CAPSULE PO SCH ×2 (09:00→20:35)
[2017-03-31] MEDS ORDERED: [UNRECOGNIZED DRUG - OTHER] PO SCH (09:00)
[2017-03-31] MEDS ORDERED: DOLUTEGRAVIR SODIUM 50 MG TABLET PO SCH (09:00)
[2017-03-31] MEDS: VENLAFAXINE HCL 75 MG ER CAPSULE PO SCH (09:13)
[2017-03-31 11:33] VITALS: BP 125/63
[2017-03-31] MEDS: MORPHINE SULFATE 4 MG/ML SYRINGE IVP PRN ×3 (15:27→22:35)
[2017-03-31 15:32] VITALS: BP 144/104
[2017-03-31 19:32] VITALS: BP 150/86
[2017-04-01 00:44] VITALS: BP 152/81
[2017-04-01] MEDS: MORPHINE SULFATE 4 MG/ML SYRINGE IVP PRN ×3 (02:16→12:04)
[2017-04-01] MEDS: ALBUTEROL SULFATE 2.5 MG/0.5 ML NEB SOLUTION NEB SCH ×3 (03:41→12:03)
[2017-04-01] MEDS: IPRATROPIUM BROMIDE 0.5 MG/2.5 ML NEB SOLUTION NEB SCH ×3 (03:41→12:03)
[2017-04-01] MEDS: MethylPREDNISolone SOD SUCC 125 MG/2 ML VIAL IVP SCH ×2 (05:46→12:04)
[2017-04-01 06:02] VITALS: BP 168/101
[2017-04-01 07:36] VITALS: BP 150/108
[2017-04-01] MEDS: CARISOPRODOL 350 MG TABLET PO SCH (08:28)
[2017-04-01] MEDS: DOCUSATE SODIUM 100 MG CAPSULE PO SCH (08:28)
[2017-04-01] MEDS: VENLAFAXINE HCL 75 MG ER CAPSULE PO SCH (08:28)
[2017-04-01] MEDS: AmLODIPine BESYLATE 5 MG TABLET PO SCH (08:28)
[2017-04-01] MEDS: HEPARIN SODIUM,PORCINE 5,000 UNITS/ML VIAL SQ SCH (08:28)
[2017-04-01] MEDS: QUEtiapine FUMARATE 25 MG TABLET PO SCH (08:29)
[2017-04-01] MEDS: PANTOPRAZOLE SODIUM 40 MG/VIAL IVP SCH (08:29)
[2017-04-01 11:18] VITALS: BP 163/83
[2017-04-01] MEDS ORDERED: AmLODIPine BESYLATE 10 MG TABLET PO ONE (13:15)
[2017-04-01 13:59] LABS: BASOPHILS # (AUTO) 0.02 K/uL (0.00-0.20); BASOPHILS % (AUTO) 0.2 % (0.0-2.0); EOSINOPHILS % (AUTO) 0 % (1.0-6.0); HEMATOCRIT 41.3 % (36-46); HEMOGLOBIN 13.3 g/dL (12.0-16.0); LYMPHOCYTES # (AUTO) 0.7 K/uL (1.0-4.8); MEAN CORPUSCULAR HEMOGLOBIN 31.4 pg (26.0-34.0); MEAN CORPUSCULAR HGB CONC 32.2 G/dL (31.0-37.0); MEAN CORPUSCULAR VOLUME 98 fL (80-100); MONOCYTES # (AUTO) 0.3 K/uL (0.1-1.0); MONOCYTES % (AUTO) 1.9 % (2.0-9.0); NEUTROPHILS # (AUTO) 12.6 K/uL (1.8-7.7); PLATELET COUNT (AUTO) 202 K/uL (150-450); RED BLOOD CELL COUNT(AUTO) 4.23 MIL/uL (4.00-5.20); RED CELL DISTRIBUTION WIDTH 15.9 % (11.5-14.5); WHITE BLOOD COUNT (AUTO) 13.5 K/uL (4.5-11.0)
[2017-04-01 14:09] LABS: CALCIUM, TOTAL 9.6 mg/dL (8.8-10.5); CREATININE 1.24 mg/dL (0.60-1.30); POTASSIUM 4.7 mmol/L (3.5-5.1)
[2017-04-01 14:16] LABS: ALBUMIN 3.5 g/dL (3.4-5.0); BILIRUBIN,TOTAL 0.3 mg/dL (0.1-1.0); TOTAL PROTEIN, SERUM 7.5 g/dL (6.4-8.2)
[2017-04-01] MEDS ORDERED: PRED5 PO (14:23)
[2017-04-01] MEDS ORDERED: PROMVCC5L PO (14:24)
[2017-04-01] MEDS ORDERED: MethylPREDNISolone SOD SUCC 125 MG/2 ML VIAL IVP SCH (18:00)
[2017-04-02] MEDS ORDERED: AmLODIPine BESYLATE 10 MG TABLET PO SCH (09:00)
[2017-04-02] MEDS ORDERED: AmLODIPine BESYLATE 5 MG TABLET PO SCH (09:00)
== END 2017-04-01 14:50 | disposition left against medical advice (07) | DRG 140 ==
LOC: EMS 04:15 → 5N 06:00
PROVIDERS: ADMIT Hospitalist; ATTEND Hospitalist
PROC: 5A09357 Assistance with Respiratory Ventilation, Less than 24 Consecutive Hours, Continuous Positive Airway Pressure (ICD-10-PCS; principal; 2017-03-30)
DX: J44.0 Chronic obstructive pulmonary disease with (acute) lower respiratory infection (principal); J96.20 Acute and chronic respiratory failure, unspecified whether with hypoxia or hypercapnia; B20 Human immunodeficiency virus [HIV] disease; J18.9 Pneumonia, unspecified organism; B00.9 Herpesviral infection, unspecified; J44.1 Chronic obstructive pulmonary disease with (acute) exacerbation; E55.9 Vitamin D deficiency, unspecified; I10 Essential (primary) hypertension; B19.20 Unspecified viral hepatitis C without hepatic coma; F41.9 Anxiety disorder, unspecified; F19.10 Other psychoactive substance abuse, uncomplicated; E78.00 Pure hypercholesterolemia, unspecified; F20.9 Schizophrenia, unspecified; K21.9 Gastro-esophageal reflux disease without esophagitis; Z82.49 Family history of ischemic heart disease and other diseases of the circulatory system; Z82.5 Family history of asthma and other chronic lower respiratory diseases; M19.90 Unspecified osteoarthritis, unspecified site; F17.210 Nicotine dependence, cigarettes, uncomplicated
CPT/HCPCS: 82805; 87040; 93005; 94640; 94644; 94645; 94660; 96365; 96372; 96375; 99285; C9113; G0480; J0456; J1630; J1644; J2060; J2270; J2930

== ENCOUNTER 2017-06-11 05:14 | Emergency (ER) | payer OTHER ==
[~2017-06-11] VITALS: Ht 172.7 cm; Wt 53.2 kg
[~2017-06-11 05:14] MED LIST changes: -ALBU17AE2 IH; -ALBU8HFA IH; -ALBUTEROL IH; -AMLO-511 PO; -AMLO-512 PO; -ASPI-825 PO; -ATOR10TA84 PO; -ATOR40TA28 PO; -AZIT250T6 PO; -BENA10TA3 PO; -COMBIH IH; -DARU400T PO; -DIAZ10TA PO; -DIPH25 PO; -FLUC200T PO; -FLUT1DIS3 IH; -HC130O TP; -MEDS UNVERIFIED; -METH10TA2 PO; -METO-325 PO; -NOCURR; -PANT40TA25 PO; -PRED10TA3 PO; -PRED20 PO; -PRED20TA3 PO; +PRED5 PO; -PRED5TAB44 PO; -PROM5SYR PO; +PROMVCC5L PO; -QUET100T PO; -QUET200T PO; -RITO100C PO; -SOMA; -SOMA PO; -TELM20 PO; -TRUVT PO; -VICODEN PO; -VICOT PO; -[UNRECOGNIZED DRUG - CODE] PO; -combivent IH; -doxycycline PO
[2017-06-11] MEDS ORDERED: DOXA2TAB PO (05:36)
[2017-06-11] MEDS ORDERED: CARI350 PO (05:36)
[2017-06-11] MEDS ORDERED: MIRT15 PO (05:36)
[2017-06-11] MEDS ORDERED: VENL-193 PO (05:36)
[2017-06-11] MEDS ORDERED: PRED5 PO (05:36)
[2017-06-11] MEDS ORDERED: CYCL10 PO (05:36)
[2017-06-11] MEDS ORDERED: PANT40TA25 PO (05:36)
[2017-06-11] MEDS ORDERED: HYDR2 PO (05:36)
[2017-06-11] MEDS ORDERED: PredniSONE 20 MG TABLET PO ONE (06:45)
[2017-06-11] MEDS ORDERED: LEVOFLOXACIN 250 MG TABLET PO ONE (08:00)
[2017-06-11] MEDS ORDERED: IPRATROPIUM BROMIDE 0.5 MG/2.5 ML NEB SOLUTION NEB ONE (08:00)
[2017-06-11] MEDS ORDERED: ALBUTEROL SULFATE 5 MG/ML 20 ML NEB SOLN [BULK] NEB ONE (08:00)
[2017-06-11 09:07] LABS: EOSINOPHILS % (AUTO) 0.8 % (1.0-6.0); HEMOGLOBIN 14.2 g/dL (12.0-16.0); LYMPHOCYTES # (AUTO) 2.3 K/uL (1.0-4.8); LYMPHOCYTES % (AUTO) 24.8 % (22.0-44.0); MEAN CORPUSCULAR HEMOGLOBIN 32.3 pg (26.0-34.0); MEAN CORPUSCULAR HGB CONC 32.9 G/dL (31.0-37.0); MEAN CORPUSCULAR VOLUME 98 fL (80-100); MONOCYTES # (AUTO) 0.4 K/uL (0.1-1.0); NEUTROPHILS # (AUTO) 6.6 K/uL (1.8-7.7); NEUTROPHILS % (AUTO) 70.4 % (40.0-70.0); RED BLOOD CELL COUNT(AUTO) 4.38 MIL/uL (4.00-5.20); RED CELL DISTRIBUTION WIDTH 15.6 % (11.5-14.5); WHITE BLOOD COUNT (AUTO) 9.4 K/uL (4.5-11.0)
[2017-06-11] MEDS ORDERED: HYDROmorphone HCL 2 MG TABLET PO ONE (09:15)
[2017-06-11 09:19] LABS: INR 1.1 (0.9-1.1); PROTHROMBIN TIME 11.1 SEC (9.4-11.6)
[2017-06-11 09:33] LABS: ANION GAP 9 mmol/L (8-16); CALCIUM, TOTAL 9.2 mg/dL (8.8-10.5); CARBON DIOXIDE 30 mmol/L (22-29); CHLORIDE 103 mmol/L (98-107); CREATININE 0.86 mg/dL (0.60-1.30); GLOMERULAR FILTR. RATE CALC > 60 mL/min (>60); POTASSIUM 4.3 mmol/L (3.5-5.1); SODIUM SERUM 142 mmol/L (136-145); UREA NITROGEN, BLOOD 16 mg/dL (7-18)
[2017-06-11 09:38] LABS: B-TYPE NATRIURETIC PEPTIDE 12 pg/mL (0-100)
[2017-06-11 09:58] LABS: ALANINE AMINOTRANSFERASE 93 U/L (12-78); ALBUMIN 3.8 g/dL (3.4-5.0); ASPARTATE AMINOTRANSFERASE 29 U/L (15-37); BILIRUBIN,TOTAL 0.2 mg/dL (0.1-1.0); CREATINE KINASE MB 4.9 ng/mL (0-5); CREATINE KINASE, TOTAL 187 U/L (26-192); TOTAL PROTEIN, SERUM 8.5 g/dL (6.4-8.2)
[2017-06-11 10:03] VITALS: BP 120/64
[2017-06-11 10:07] LABS: PLATELET COUNT (AUTO) 211 K/uL (150-450)
== END 2017-06-11 10:14 | disposition home or self-care (01) ==
LOC: EMS 05:16
DX: J44.9 Chronic obstructive pulmonary disease, unspecified (principal); R06.00 Dyspnea, unspecified; J45.909 Unspecified asthma, uncomplicated; K21.9 Gastro-esophageal reflux disease without esophagitis; E78.00 Pure hypercholesterolemia, unspecified; I10 Essential (primary) hypertension; F14.90 Cocaine use, unspecified, uncomplicated; F17.210 Nicotine dependence, cigarettes, uncomplicated
CPT/HCPCS: 36415; 71010; 80053; 82550; 82553; 83880; 84484; 85025; 85610; 85730; 93005; 94640; 99285; J7512; J7611